=== PATIENT | female | born 1960 | race African-American/Black ===

== ENCOUNTER 2017-05-28 13:12 | Inpatient (IN) | payer OTHER ==
[2017-05-28 15:54] VITALS: BMI 32.5
--- NOTE | 2017-05-28 18:47 | HP ---
CIWA Score - CIWA Score Nausea/Vomitin-No Nausea/No Vomiting Muscle Tremors: 4-Moderate,w/Arms Extend Anxiety: 4-Mod. Anxious/Guarded Agitation: 4-Moderately Restless Paroxysmal Sweats: 3 Orientation: 0-Oriented Tacttile Disturbances: 0-None Auditory Disturbances: 0-None Visual Disturbances: 0-None Headache: 0-None Present CIWA-Ar Total Score: 15 Admission ROS S - HPI Chief Complaint: I am here for detox. Allergies/Adverse Reactions: Allergies Allergy/AdvReac Type Severity Reaction Status Date / Time No Known Allergies Allergy Verified 05/28/17 17:50 History of Present Illness: pt is a 57yr old female with a history of alcohol and cocaine dependence seeking detox for treatment. Exam Limitations: No Limitations - Ebola screening Have you traveled outside of the country in the last 21 days: No (NN) Have you had contact with anyone from an Ebola affected area: No Have you been sick,other than usual withdrawal symptoms: No Do you have a fever: No - Review of Systems Constitutional: Chills, Loss of Appetite, Night Sweats EENT: reports: No Symptoms Reported Respiratory: reports: Cough Cardiac: reports: No Symptoms Reported GI: reports: Diarrhea, Poor Appetite, Poor Fluid Intake : reports: No Symptoms Reported Musculoskeletal: reports: No Symptoms Reported Integumentary: reports: Flushing, Sweating Neuro: reports: Headache, Tingling, Tremors Endocrine: reports: Excessive Sweating, Flushing, Intolerance to Cold, Intolerance to Heat Hematology: reports: No Symptoms Reported Psychiatric: reports: Judgement Intact, Mood/Affect Appropiate, Orientated x3, Agitated, Anxious Other Systems: Reviewed and Negative Patient History - Patient Medical History Hx Anemia: No Hx Asthma: No Hx Chronic Obstructive Pulmonary Disease (COPD): No Hx Cancer: No Hx Cardiac Disorders: No Hx Congestive Heart Failure: No Hx Hypertension: No Hx Hypercholesterolemia: No Hx Pacemaker: No HX Cerebrovascular Accident: No Hx Seizures: No Hx Dementia: No Hx Diabetes: No Hx Gastrointestinal Disorders: No Hx Liver Disease: No Hx Genitourinary Disorders: No Hx Sexually Transmitted Disorders: No Hx Renal Disease (ESRD): No Hx Thyroid Disease: Yes (hyperthyroidism - TAPAZOLE 10MG d/c since 2016) Hx Human Immunodeficiency Virus (HIV): No (NEGATIVE 1 YR AGO) Hx Hepatitis C: No Hx Depression: No Hx Suicide Attempt: No (denies) Hx Bipolar Disorder: No Hx Schizophrenia: No - Patient Surgical History Past Surgical History: Yes Hx Neurologic Surgery: No Hx Cataract Extraction: Yes (01/2016 RIGHT) Hx Cardiac Surgery: No Hx Lung Surgery: No Hx Breast Surgery: No Hx Breast Biopsy: No Hx Abdominal Surgery: No Hx Appendectomy: No Hx Cholecystectomy: No Hx Genitourinary Surgery: No Hx Section: No Hx Orthopedic Surgery: No Hx Hysterectomy: No Other Surgical History: ectopic Anesthesia Reaction: No - PPD History Previous Implant?: Yes Documented Results: Negative w/o proof Implanted On Prior R Admission?: Yes PPD to be Administered?: Yes - Reproductive History Patient is a Female of Child Bearing Age (11 -55 yrs old): No Last Menstrual Period: 08/13/05 Patient : No - Smoking Cessation Smoking history: Current some day smoker Have you smoked in the past 12 months: No Aproximately how many cigarettes per day: 2 Cigars Per Day: 0 Hx Chewing Tobacco Use: No Initiated information on smoking cessation: Yes 'Breaking Loose' booklet given: 05/28/17 - Substance & Tx. History Hx Alcohol Use: Yes Hx Substance Use: Yes Substance Use Type: Alcohol, Cocaine, Marijuana Hx Substance Use Treatment: Yes (last detox 2014 [facility]) - Substances Abused Alcohol Route: Oral Frequency: Daily Amount used: 4-5 beers/ 1 pint vodka Age of first use: 13 Date of Last Use: 05/28/17 Cocaine Route: Inhalation Frequency: 1-2 times per week Amount used: $20 Age of first use: 15 Date of Last Use: 05/26/17 Marijuana/Hashish Route: Smoking Frequency: Daily Amount used: 1-2 bags Age of first use: 13 Date of Last Use: 05/27/17 Family Disease History - Family Disease History Family Disease History: Other: Father (), Mother () Admission Physical Exam BHS - Vital Signs Vital Signs: Vital Signs - 24 hr 05/28/17 15:50 Temperature 97.9 F Pulse Rate 71 Respiratory 20 Rate Blood Pressure 155/103 - Physical General Appearance: Yes: Appropriately Dressed, Obese, Tremorous, Irritable, Sweating, Anxious HEENTM: Yes: Normal Voice, Nasal Congestion, Rhinorrhea, Other (pt has a h/o hyperthyroidism not taking any medication. her medication was d/c since 2017. pt is being followed by her PMD.) Respiratory: Yes: Lungs Clear, Normal Breath Sounds, No Respiratory Distress Neck: Yes: No masses,lesions,Nodules Breast: Yes: Within Normal Limits Cardiology: Yes: Regular Rhythm, Regular Rate, S1, S2 Abdominal: Yes: Normal Bowel Sounds Genitourinary: Yes: Within Normal Limits Back: Yes: Normal Inspection Musculoskeletal: Yes: full range of Motion Extremities: Yes: Normal Capillary Refill, Normal Inspection, Tremors Neurological: Yes: Fully Oriented, Alert, Normal Response Integumentary: Yes: Normal Color Lymphatic: Yes: Within Normal Limits - Diagnostic (1) Alcohol dependence with uncomplicated withdrawal Current Visit: Yes Status: Chronic (2) Hyperthyroidism Current Visit: No Status: Suspected Comment: PT ON TAPAZOLE X 4 YRS - HAS REFUSED SURGERY. Cleared for Admission [facility] - Detox or Rehab [facility] Level of Care: Medically Managed Detox Regimen/Protocol: Librium [facility] Breath Alcohol Content Breath Alcohol Content: 0.023 Urine Pregancy Test - Result Urine Test Results: Negative- NO Line Present Urine Drug Screen - Results Drug Screen Negative: No Urine Drug Screen Results: THC-Marijuana, LUIS A-Cocaine
[2017-05-28] MEDS ORDERED: MAGNESIUM CITRATE 300 ML BOTTLE PO PRN (18:50)
[2017-05-28] MEDS ORDERED: MENTHOL/PHENOL 1 EACH UD MM PRN (18:50)
[2017-05-28] MEDS ORDERED: chlordiazePOXIDE HCL 25 MG CAPSULE PO PRN (18:50)
[2017-05-28] MEDS ORDERED: MAG HYDROX/AL HYDROX/SIMETH 30 ML UNIT-DOSE CUP PO PRN (18:50)
[2017-05-28] MEDS ORDERED: IBUPROFEN 400 MG TABLET (FP) PO PRN (18:50)
[2017-05-28] MEDS ORDERED: LOPERAMIDE HCL 2 MG CAPSULE PO PRN (18:50)
[2017-05-28] MEDS ORDERED: ACETAMINOPHEN 325 MG TABLET (FP) PO PRN (18:50)
[2017-05-28] MEDS ORDERED: hydrOXYzine PAMOATE 50 MG CAPSULE (FP) PO PRN (18:50)
[2017-05-28] MEDS ORDERED: MAGNESIUM HYDROX 2400MG/30ML ORAL SUSPENSION 30 ML CUP PO PRN (18:50)
[2017-05-28] MEDS ORDERED: P-EPHED 60MG/TRIPROLIDI 2.5MG TABLET PO PRN (18:50)
[2017-05-28] MEDS ORDERED: chlordiazePOXIDE HCL 25 MG CAPSULE PO ONE (20:00)
[2017-05-28] MEDS: guaiFENesin/D-METHORPHAN HB 10 ML UNIT-DOSE CUPS PO PRN (20:01)
[2017-05-28] MEDS ORDERED: MELATONIN 5 MG TABLETS PO PRN (22:00)
[2017-05-28] MEDS: chlordiazePOXIDE HCL 25 MG CAPSULE PO SCH (22:34)
[2017-05-28] MEDS: THIAMINE HCL 100 MG TABLET (FP) PO SCH (22:34)
[2017-05-29 02:24] LABS: URINE APPEARANCE CLOUDY; URINE BILIRUBIN NEGATIVE (<2.0 mg/dL); URINE BLOOD 1+ (NEGATIVE); URINE COLOR DKYELLOW; URINE GLUCOSE (UA) NEGATIVE (NEGATIVE); URINE KETONE NEGATIVE (NEGATIVE); URINE NITRITE POSITIVE (NEGATIVE); URINE PROTEIN NEGATIVE (NEGATIVE); URINE UROBILINOGEN NEGATIVE mg/dL (0.2-1.0)
[2017-05-29 02:29] LABS: URINE LEUK ESTERASE 3+ (NEGATIVE)
[2017-05-29 02:39] LABS: EPI CELLS RARE /HPF (FEW); URINE HYALINE CAST 1 /lpf; URINE MUCUS RARE
[2017-05-29] MEDS: chlordiazePOXIDE HCL 25 MG CAPSULE PO SCH ×4 (05:14→22:10)
--- NOTE | 2017-05-29 09:35 | EKG ---
Test Reason : Blood Pressure : / mmHG Vent. Rate : 081 BPM Atrial Rate : 081 BPM P-R Int : 136 ms QRS Dur : 086 ms QT Int : 426 ms P-R-T Axes : 061 021 062 degrees QTc Int : 494 ms NORMAL SINUS RHYTHM POSSIBLE ANTERIOR INFARCT , AGE UNDETERMINED ABNORMAL ECG NO PREVIOUS ECGS AVAILABLE Confirmed by MONIKA WANG MD ([id number]) on 05/29/2017 9:34:57 AM Referred By: Confirmed By:MONIKA WANG MD
--- NOTE | 2017-05-29 09:42 | PN ---
S CIWA - CIWA Score Nausea/Vomitin Muscle Tremors: 3 Anxiety: 3 Agitation: 2 Paroxysmal Sweats: 1-Minimal Palms Moist Orientation: 0-Oriented Tacttile Disturbances: 1-Very Mild Itch/Numbness Auditory Disturbances: 1-Very Mild Visual Disturbances: 0-None Headache: 2-Mild CIWA-Ar Total Score: 16 BHS Progress Note (SOAP) Subjective: ALERT,IRRITABLE,ANXIOUS,INTERRUPTED SLEEP,TREMOR Objective: 05/29/17 09:38 Vital Signs Temperature 98.1 F 05/29/17 06:00 Pulse Rate 81 05/29/17 06:00 Respiratory Rate 18 05/29/17 06:00 Blood Pressure 125/69 05/29/17 06:00 O2 Sat by Pulse Oximetry (%) EKG NSR 81/MIN,INVERTED T IN V1,V2 NO CHEST PAIN,NO SOB,NO DIZZINESS 05/29/17 09:40 Laboratory Last Values Urine Color Dkyellow 05/29/17 00:05 Urine Appearance Cloudy 05/29/17 00:05 Urine pH 6.0 (5.0-8.0) 05/29/17 00:05 Ur Specific [place] 1.012 (1.001-1.035) 05/29/17 00:05 Urine Protein Negative (NEGATIVE) 05/29/17 00:05 Urine Glucose (UA) Negative (NEGATIVE) 05/29/17 00:05 Urine Ketones Negative (NEGATIVE) 05/29/17 00:05 Urine Blood 1+ (NEGATIVE) H 05/29/17 00:05 Urine Nitrite Positive (NEGATIVE) 05/29/17 00:05 Urine Bilirubin Negative (<2.0 mg/dL) 05/29/17 00:05 Urine Urobilinogen Negative mg/dL (0.2-1.0) 05/29/17 00:05 Ur Leukocyte Esterase 3+ (NEGATIVE) H 05/29/17 00:05 Urine WBC (Auto) 95 /hpf (3-5) 05/29/17 00:05 Urine RBC (Auto) None /hpf (0-3) 05/29/17 00:05 Ur Epithelial Cells Rare /HPF (FEW) 05/29/17 00:05 Hyaline Casts 1 /lpf 05/29/17 00:05 Urine Mucus Rare 05/29/17 00:05 WITHDRAWAL SYMPTOM Assessment: 05/29/17 09:40 WITHDRAWAL SYMPTOM Plan: CONTINUE DETOX,HISTORY OF HYPERTHYROIDISM USED TO TAKE MEDICATION BUT D/C BY HER PMD,HAS BEEN FOLLOWED UP BY HER PMD REGULARLY
[2017-05-29 09:56] LABS: ALBUMIN 2.6 g/dl (3.4-5.0); ANION GAP 6 (8-16); BLOOD UREA NITROGEN 6 mg/dL (7-18); CALCIUM 8.5 mg/dL (8.5-10.1); CHLORIDE 105 mmol/L (98-107); CO2 33 mmol/L (21-32); GLUCOSE,RANDOM 75 mg/dL (74-106); POTASSIUM 3.8 mmol/L (3.5-5.1); SGPT/ALT 31 U/L (12-78); SODIUM 144 mmol/L (136-145)
[2017-05-29 09:59] LABS: ALK PHOS 111 U/L (45-117); BILIRUBIN,TOTAL 0.4 mg/dL (0.2-1.0); CREATININE 0.7 mg/dL (0.55-1.02); SGOT/AST 29 U/L (15-37); TOT PROT 6.2 g/dl (6.4-8.2)
[2017-05-29 10:03] LABS: HEMATOCRIT 43.6 % (32.4-45.2); HEMOGLOBIN 13.9 GM/dL (10.7-15.3); MCH 24.1 pg (25.7-33.7); MEAN CELL VOLUME 75.3 fl (80-96); MEAN PLT VOLUME 9.5 fl (7.5-11.1); PLATELET COUNT 287 K/MM3 (134-434); RBC 5.78 M/mm3 (3.60-5.2); RDW 18.1 % (11.6-15.6); WHITE BLOOD COUNT 6.2 K/mm3 (4.0-10.0)
[2017-05-29] MEDS: PRENATAL VITAMINS W/ FOLIC ACID TABLET (FP) PO SCH (10:27)
[2017-05-29] MEDS: NICOTINE 7 MG/24 HOURS TOPICAL PATCH TD SCH (10:28)
--- NOTE | 2017-05-29 14:55 | PN ---
BHS Progress Note Note: ALERT,WITHDRAWAL SYMPTOM
[2017-05-29] MEDS: THIAMINE HCL 100 MG TABLET (FP) PO SCH (22:10)
[2017-05-30] MEDS: chlordiazePOXIDE HCL 25 MG CAPSULE PO SCH ×3 (05:36→17:19)
[2017-05-30] MEDS: PRENATAL VITAMINS W/ FOLIC ACID TABLET (FP) PO SCH (10:13)
[2017-05-30] MEDS: NICOTINE 7 MG/24 HOURS TOPICAL PATCH TD SCH (10:14)
[2017-05-30] MEDS: guaiFENesin/D-METHORPHAN HB 10 ML UNIT-DOSE CUPS PO PRN ×2 (10:15→22:05)
--- NOTE | 2017-05-30 10:54 | PN ---
S CIWA - CIWA Score Nausea/Vomitin Muscle Tremors: 3 Anxiety: 2 Agitation: 2 Paroxysmal Sweats: 1-Minimal Palms Moist Orientation: 0-Oriented Tacttile Disturbances: 1-Very Mild Itch/Numbness Auditory Disturbances: 1-Very Mild Visual Disturbances: 1-Very Mild Sensitivity Headache: 2-Mild CIWA-Ar Total Score: 16 S Progress Note (SOAP) Subjective: ALERT,IRRITABLE,ANXIOUS,INTERRUPTED SLEEP Objective: 05/30/17 10:50 Vital Signs Temperature 98.2 F 05/30/17 10:36 Pulse Rate 96 H 05/30/17 10:36 Respiratory Rate 18 05/30/17 10:36 Blood Pressure 122/80 05/30/17 10:36 O2 Sat by Pulse Oximetry (%) 05/30/17 11:02 Laboratory Last Values WBC 6.2 K/mm3 (4.0-10.0) 05/29/17 08:00 RBC 5.78 M/mm3 (3.60-5.2) H 05/29/17 08:00 Hgb 13.9 GM/dL (10.7-15.3) 05/29/17 08:00 Hct 43.6 % (32.4-45.2) 05/29/17 08:00 MCV 75.3 fl (80-96) L 05/29/17 08:00 MCH 24.1 pg (25.7-33.7) L 05/29/17 08:00 MCHC 32.0 g/dl (32.0-36.0) 05/29/17 08:00 RDW 18.1 % (11.6-15.6) H 05/29/17 08:00 Plt Count 287 K/MM3 (134-434) 05/29/17 08:00 MPV 9.5 fl (7.5-11.1) 05/29/17 08:00 Sodium 144 mmol/L (136-145) 05/29/17 08:00 Potassium 3.8 mmol/L (3.5-5.1) 05/29/17 08:00 Chloride 105 mmol/L (98-107) 05/29/17 08:00 Carbon Dioxide 33 mmol/L (21-32) H 05/29/17 08:00 Anion Gap 6 (8-16) L 05/29/17 08:00 BUN 6 mg/dL (7-18) L 05/29/17 08:00 Creatinine 0.7 mg/dL (0.55-1.02) 05/29/17 08:00 Creat Clearance w eGFR > 60 (>60) 05/29/17 08:00 Random Glucose 75 mg/dL (74-106) 05/29/17 08:00 Calcium 8.5 mg/dL (8.5-10.1) 05/29/17 08:00 Total Bilirubin 0.4 mg/dL (0.2-1.0) D 05/29/17 08:00 AST 29 U/L (15-37) 05/29/17 08:00 ALT 31 U/L (12-78) 05/29/17 08:00 Alkaline Phosphatase 111 U/L (45-117) 05/29/17 08:00 Total Protein 6.2 g/dl (6.4-8.2) L 05/29/17 08:00 Albumin 2.6 g/dl (3.4-5.0) L 05/29/17 08:00 Urine Color Dkyellow 05/29/17 00:05 Urine Appearance Cloudy 05/29/17 00:05 Urine pH 6.0 (5.0-8.0) 05/29/17 00:05 Ur Specific [place] 1.012 (1.001-1.035) 05/29/17 00:05 Urine Protein Negative (NEGATIVE) 05/29/17 00:05 Urine Glucose (UA) Negative (NEGATIVE) 05/29/17 00:05 Urine Ketones Negative (NEGATIVE) 05/29/17 00:05 Urine Blood 1+ (NEGATIVE) H 05/29/17 00:05 Urine Nitrite Positive (NEGATIVE) 05/29/17 00:05 Urine Bilirubin Negative (<2.0 mg/dL) 05/29/17 00:05 Urine Urobilinogen Negative mg/dL (0.2-1.0) 05/29/17 00:05 Ur Leukocyte Esterase 3+ (NEGATIVE) H 05/29/17 00:05 Urine WBC (Auto) 95 /hpf (3-5) 05/29/17 00:05 Urine RBC (Auto) None /hpf (0-3) 05/29/17 00:05 Ur Epithelial Cells Rare /HPF (FEW) 05/29/17 00:05 Hyaline Casts 1 /lpf 05/29/17 00:05 Urine Mucus Rare 05/29/17 00:05 RPR Titer Nonreactive (NONREACTIVE) 05/29/17 08:00 HIV 1&2 Antibody Screen Negative 05/29/17 08:00 HIV P24 Antigen Negative 05/29/17 08:00 05/30/17 11:11 CHEST RAY 0N 05/29/17 NOTED 05/30/17 11:14 Assessment: 05/30/17 11:14 WITHDRAWAL SYMPTOM Plan: CONTINUE DETOX,REPEAT UA,URINE FOR C/S,BACTRIM DS 1 TAB PO BID,FOR UTI FOR 7 DAYS
[2017-05-30] MEDS: SULFAMETHOXAZOLE/TRIMETHOPRIM 800MG/160MG D.S. TABLET PO SCH ×2 (12:50→22:06)
[2017-05-30 13:10] LABS: URINE APPEARANCE SLCLOUDY; URINE BILIRUBIN NEGATIVE (<2.0 mg/dL); URINE BLOOD NEGATIVE (NEGATIVE); URINE COLOR LTYELLOW; URINE GLUCOSE (UA) NEGATIVE (NEGATIVE); URINE KETONE NEGATIVE (NEGATIVE); URINE NITRITE NEGATIVE (NEGATIVE); URINE PROTEIN NEGATIVE (NEGATIVE); URINE UROBILINOGEN NEGATIVE mg/dL (0.2-1.0)
[2017-05-30 13:15] LABS: URINE LEUK ESTERASE 3+ (NEGATIVE)
[2017-05-30 13:19] LABS: EPI CELLS RARE /HPF (FEW); URINE MUCUS RARE
[2017-05-30] MEDS: chlordiazePOXIDE 5 MG CAPSULE PO SCH (22:06)
[2017-05-30] MEDS: THIAMINE HCL 100 MG TABLET (FP) PO SCH (22:06)
[2017-05-31] MEDS: chlordiazePOXIDE 5 MG CAPSULE PO SCH ×3 (05:11→17:29)
[2017-05-31] MEDS: SULFAMETHOXAZOLE/TRIMETHOPRIM 800MG/160MG D.S. TABLET PO SCH ×2 (10:11→22:04)
[2017-05-31] MEDS: NICOTINE 7 MG/24 HOURS TOPICAL PATCH TD SCH (10:11)
[2017-05-31] MEDS: PRENATAL VITAMINS W/ FOLIC ACID TABLET (FP) PO SCH (10:11)
--- NOTE | 2017-05-31 13:28 | PN ---
BHS Progress Note (SOAP) Subjective: feeling better less sweat no tremor denies gi distress Objective: 05/31/17 13:26 Vital Signs Temperature 98.1 F 05/31/17 12:00 Pulse Rate 87 05/31/17 12:00 Respiratory Rate 18 05/31/17 12:00 Blood Pressure 130/83 05/31/17 12:00 O2 Sat by Pulse Oximetry (%) Laboratory Last Values WBC 6.2 K/mm3 (4.0-10.0) 05/29/17 08:00 RBC 5.78 M/mm3 (3.60-5.2) H 05/29/17 08:00 Hgb 13.9 GM/dL (10.7-15.3) 05/29/17 08:00 Hct 43.6 % (32.4-45.2) 05/29/17 08:00 MCV 75.3 fl (80-96) L 05/29/17 08:00 MCH 24.1 pg (25.7-33.7) L 05/29/17 08:00 MCHC 32.0 g/dl (32.0-36.0) 05/29/17 08:00 RDW 18.1 % (11.6-15.6) H 05/29/17 08:00 Plt Count 287 K/MM3 (134-434) 05/29/17 08:00 MPV 9.5 fl (7.5-11.1) 05/29/17 08:00 Sodium 144 mmol/L (136-145) 05/29/17 08:00 Potassium 3.8 mmol/L (3.5-5.1) 05/29/17 08:00 Chloride 105 mmol/L (98-107) 05/29/17 08:00 Carbon Dioxide 33 mmol/L (21-32) H 05/29/17 08:00 Anion Gap 6 (8-16) L 05/29/17 08:00 BUN 6 mg/dL (7-18) L 05/29/17 08:00 Creatinine 0.7 mg/dL (0.55-1.02) 05/29/17 08:00 Creat Clearance w eGFR > 60 (>60) 05/29/17 08:00 Random Glucose 75 mg/dL (74-106) 05/29/17 08:00 Calcium 8.5 mg/dL (8.5-10.1) 05/29/17 08:00 Total Bilirubin 0.4 mg/dL (0.2-1.0) D 05/29/17 08:00 AST 29 U/L (15-37) 05/29/17 08:00 ALT 31 U/L (12-78) 05/29/17 08:00 Alkaline Phosphatase 111 U/L (45-117) 05/29/17 08:00 Total Protein 6.2 g/dl (6.4-8.2) L 05/29/17 08:00 Albumin 2.6 g/dl (3.4-5.0) L 05/29/17 08:00 Urine Color Ltyellow 05/30/17 10:00 Urine Appearance Slcloudy 05/30/17 10:00 Urine pH 6.0 (5.0-8.0) 05/30/17 10:00 Ur Specific [place] 1.008 (1.001-1.035) 05/30/17 10:00 Urine Protein Negative (NEGATIVE) 05/30/17 10:00 Urine Glucose (UA) Negative (NEGATIVE) 05/30/17 10:00 Urine Ketones Negative (NEGATIVE) 05/30/17 10:00 Urine Blood Negative (NEGATIVE) 05/30/17 10:00 Urine Nitrite Negative (NEGATIVE) 05/30/17 10:00 Urine Bilirubin Negative (<2.0 mg/dL) 05/30/17 10:00 Urine Urobilinogen Negative mg/dL (0.2-1.0) 05/30/17 10:00 Ur Leukocyte Esterase 3+ (NEGATIVE) H 05/30/17 10:00 Urine WBC (Auto) 67 /hpf (3-5) 05/30/17 10:00 Urine RBC (Auto) None /hpf (0-3) 05/30/17 10:00 Ur Epithelial Cells Rare /HPF (FEW) 05/30/17 10:00 Hyaline Casts 1 /lpf 05/29/17 00:05 Urine Mucus Rare 05/30/17 10:00 RPR Titer Nonreactive (NONREACTIVE) 05/29/17 08:00 HIV 1&2 Antibody Screen Negative 05/29/17 08:00 HIV P24 Antigen Negative 05/29/17 08:00 lab noted 05/31/17 13:27 continue bactrim Assessment: 04/15/18 13:27 mild withdrawal sx uti Plan: medically supervised detox continue bactrim
[2017-05-31] MEDS: THIAMINE HCL 100 MG TABLET (FP) PO SCH (22:04)
[2017-05-31] MEDS: chlordiazePOXIDE HCL 10 MG CAPSULE PO SCH (22:04)
[2017-06-01] MEDS: chlordiazePOXIDE HCL 10 MG CAPSULE PO SCH ×2 (05:37→10:07)
--- NOTE | 2017-06-01 08:14 | PN ---
S Progress Note (SOAP) Subjective: ALERT,NO COMPLAINT Objective: 06/01/17 08:13 Vital Signs Temperature 98.5 F 06/01/17 06:17 Pulse Rate 87 06/01/17 06:17 Respiratory Rate 18 06/01/17 06:17 Blood Pressure 100/65 06/01/17 06:17 O2 Sat by Pulse Oximetry (%) Assessment: 06/01/17 08:13 DETOX COMPLETED,NO WITHDRAWAL SYMPTOM Plan: DISCHARGE TODAY,FOLLOW UP WITH AFTER CARE PROGRAM ARRANGEMENT
--- NOTE | 2017-06-01 08:19 | DS ---
[facility] Detox Discharge Summary Admission Date: 05/28/17 Discharge Date: 06/01/17 - History Present History: Alcohol Dependence Additional Comments: FOLLOW UP WITH AFTER CARE PROGRAM ARRANGEMENT,URINE FOR C/C PENDING,ON BACTRIM DS 1 TAB PO BID FOR UTI Pertinent Past History: HYPERTHYROIDISM - Physical Exam Results Vital Signs: Vital Signs Temperature 98.5 F 06/01/17 06:17 Pulse Rate 87 06/01/17 06:17 Respiratory Rate 18 06/01/17 06:17 Blood Pressure 100/65 06/01/17 06:17 O2 Sat by Pulse Oximetry (%) Pertinent Admission Physical Exam Findings: WITHDRAWAL SIGNS AND SYMPTOM Vital Signs Temperature 98.5 F 06/01/17 06:17 Pulse Rate 87 06/01/17 06:17 Respiratory Rate 18 06/01/17 06:17 Blood Pressure 100/65 06/01/17 06:17 O2 Sat by Pulse Oximetry (%) Laboratory Last Values WBC 6.2 K/mm3 (4.0-10.0) 05/29/17 08:00 RBC 5.78 M/mm3 (3.60-5.2) H 05/29/17 08:00 Hgb 13.9 GM/dL (10.7-15.3) 05/29/17 08:00 Hct 43.6 % (32.4-45.2) 05/29/17 08:00 MCV 75.3 fl (80-96) L 05/29/17 08:00 MCH 24.1 pg (25.7-33.7) L 05/29/17 08:00 MCHC 32.0 g/dl (32.0-36.0) 05/29/17 08:00 RDW 18.1 % (11.6-15.6) H 05/29/17 08:00 Plt Count 287 K/MM3 (134-434) 05/29/17 08:00 MPV 9.5 fl (7.5-11.1) 05/29/17 08:00 Sodium 144 mmol/L (136-145) 05/29/17 08:00 Potassium 3.8 mmol/L (3.5-5.1) 05/29/17 08:00 Chloride 105 mmol/L (98-107) 05/29/17 08:00 Carbon Dioxide 33 mmol/L (21-32) H 05/29/17 08:00 Anion Gap 6 (8-16) L 05/29/17 08:00 BUN 6 mg/dL (7-18) L 05/29/17 08:00 Creatinine 0.7 mg/dL (0.55-1.02) 05/29/17 08:00 Creat Clearance w eGFR > 60 (>60) 05/29/17 08:00 Random Glucose 75 mg/dL (74-106) 05/29/17 08:00 Calcium 8.5 mg/dL (8.5-10.1) 05/29/17 08:00 Total Bilirubin 0.4 mg/dL (0.2-1.0) D 05/29/17 08:00 AST 29 U/L (15-37) 05/29/17 08:00 ALT 31 U/L (12-78) 05/29/17 08:00 Alkaline Phosphatase 111 U/L (45-117) 05/29/17 08:00 Total Protein 6.2 g/dl (6.4-8.2) L 05/29/17 08:00 Albumin 2.6 g/dl (3.4-5.0) L 05/29/17 08:00 Urine Color Ltyellow 05/30/17 10:00 Urine Appearance Slcloudy 05/30/17 10:00 Urine pH 6.0 (5.0-8.0) 05/30/17 10:00 Ur Specific [place] 1.008 (1.001-1.035) 05/30/17 10:00 Urine Protein Negative (NEGATIVE) 05/30/17 10:00 Urine Glucose (UA) Negative (NEGATIVE) 05/30/17 10:00 Urine Ketones Negative (NEGATIVE) 05/30/17 10:00 Urine Blood Negative (NEGATIVE) 05/30/17 10:00 Urine Nitrite Negative (NEGATIVE) 05/30/17 10:00 Urine Bilirubin Negative (<2.0 mg/dL) 05/30/17 10:00 Urine Urobilinogen Negative mg/dL (0.2-1.0) 05/30/17 10:00 Ur Leukocyte Esterase 3+ (NEGATIVE) H 05/30/17 10:00 Urine WBC (Auto) 67 /hpf (3-5) 05/30/17 10:00 Urine RBC (Auto) None /hpf (0-3) 05/30/17 10:00 Ur Epithelial Cells Rare /HPF (FEW) 05/30/17 10:00 Hyaline Casts 1 /lpf 05/29/17 00:05 Urine Mucus Rare 05/30/17 10:00 RPR Titer Nonreactive (NONREACTIVE) 05/29/17 08:00 HIV 1&2 Antibody Screen Negative 05/29/17 08:00 HIV P24 Antigen Negative 05/29/17 08:00 - Treatment Hospital Course: Detox Protocol Followed, Detoxed Safely, Responded well, Discharged Condition Good, Rehab Referral Accepted Patient has Accepted a Rehab Referral to: [facility] - Medication Discharge Medications: Ambulatory Orders NK [No Known Home Medication] 05/28/17 - Diagnosis (1) Alcohol dependence with uncomplicated withdrawal Current Visit: Yes Status: Chronic (2) Nicotine abuse Current Visit: No Status: Chronic (3) Hyperthyroidism Current Visit: No Status: Suspected (4) Nicotine dependence Current Visit: Yes Status: Acute (5) Nicotine dependence Current Visit: Yes Status: Acute (6) UTI (urinary tract infection) Current Visit: Yes Status: Acute - AMA Did Patient Leave Against Medical Advice: No
[2017-06-01] MEDS: SULFAMETHOXAZOLE/TRIMETHOPRIM 800MG/160MG D.S. TABLET PO SCH (10:06)
[2017-06-01] MEDS: PRENATAL VITAMINS W/ FOLIC ACID TABLET (FP) PO SCH (10:07)
[2017-06-01] MEDS: NICOTINE 7 MG/24 HOURS TOPICAL PATCH TD SCH (10:07)
[2017-06-01 14:09] VITALS: BP 146/82; PULSE 95; TEMP 97.7
== END 2017-06-01 14:17 | disposition home or self-care (01) | DRG 774 ==
LOC: YASAS 13:12 → Y6N 19:12
PROVIDERS: ADMIT Internal Medicine; ATTEND Internal Medicine
PROC: HZ2ZZZZ Detoxification Services for Substance Abuse Treatment (ICD-10-PCS; principal; 2017-05-28)
DX: F10.230 Alcohol dependence with withdrawal, uncomplicated (principal); F14.20 Cocaine dependence, uncomplicated; F17.210 Nicotine dependence, cigarettes, uncomplicated; E05.90 Thyrotoxicosis, unspecified without thyrotoxic crisis or storm; N39.0 Urinary tract infection, site not specified; Z59.0 Homelessness
CPT/HCPCS: 36415; 71045-TC-FY; 80053; 81003; 81015; 85027; 86593; 87086; 87389; 93005; 93010

== ENCOUNTER 2017-07-29 15:51 | Inpatient (IN) | payer OTHER ==
[2017-07-29 17:22] VITALS: BMI 32.9
--- NOTE | 2017-07-29 20:53 | HP ---
CIWA Score - CIWA Score Nausea/Vomitin Muscle Tremors: 2 Anxiety: 2 Agitation: 1-Slight > Activity Paroxysmal Sweats: 2 Orientation: 1-Uncertain about Date Tacttile Disturbances: 1-Very Mild Itch/Numbness Auditory Disturbances: 0-None Visual Disturbances: 1-Very Mild Sensitivity Headache: 0-None Present CIWA-Ar Total Score: 13 Admission ROS BHS - HPI Chief Complaint: alcohol withdrawal symptoms Allergies/Adverse Reactions: Allergies Allergy/AdvReac Type Severity Reaction Status Date / Time No Known Allergies Allergy Verified 07/29/17 19:38 History of Present Illness: 57 yo female with hx of chronic alcohol and nicotine dependence is here seeking detox, this is one of multiple admissions. PMHX: thyroid d/o, liver disease ( unspecified), bipolar and depression. Denies suicidal / homicidal ideation or hx of suicide attempt. Last detox [facility] 05/28/17 - 05/26/17. Longest period of sobriety 5 years. Exam Limitations: No Limitations - Ebola screening Have you traveled outside of the country in the last 21 days: No (N) Have you had contact with anyone from an Ebola affected area: No Have you been sick,other than usual withdrawal symptoms: No Do you have a fever: No - Review of Systems Constitutional: Chills, Loss of Appetite, Changes in sleep, Unintentional Wgt. Loss EENT: reports: Dental Problems Respiratory: reports: SOB with Exertion (missing teeth) Cardiac: reports: No Symptoms Reported GI: reports: Diarrhea, Nausea, Poor Appetite, Poor Fluid Intake, Vomiting : reports: Other (ocassional incontinence) Musculoskeletal: reports: No Symptoms Reported Integumentary: reports: No Symptoms Reported Endocrine: reports: Increased Thirst Hematology: reports: No Symptoms Reported Psychiatric: reports: Orientated x3, Depressed Other Systems: Reviewed and Negative Patient History - Patient Medical History Hx Anemia: No Hx Asthma: No Hx Chronic Obstructive Pulmonary Disease (COPD): No Hx Cancer: No Hx Cardiac Disorders: No Hx Congestive Heart Failure: No Hx Hypertension: No Hx Hypercholesterolemia: No Hx Pacemaker: No HX Cerebrovascular Accident: No Hx Seizures: No Hx Dementia: No Hx Diabetes: No Hx Gastrointestinal Disorders: No Hx Liver Disease: No Hx Genitourinary Disorders: No Hx Sexually Transmitted Disorders: No Hx Renal Disease (ESRD): No Hx Thyroid Disease: Yes (hyperthyroidism - TAPAZOLE 10MG d/c since 2016) Hx Human Immunodeficiency Virus (HIV): No (NEGATIVE 1 YR AGO) Hx Hepatitis C: No Hx Depression: Yes Hx Suicide Attempt: No Hx Bipolar Disorder: No Hx Schizophrenia: No - Patient Surgical History Past Surgical History: Yes Hx Neurologic Surgery: No Hx Cataract Extraction: Yes (01/2016 RIGHT) Hx Cardiac Surgery: No Hx Lung Surgery: No Hx Breast Surgery: No Hx Breast Biopsy: No Hx Abdominal Surgery: No Hx Appendectomy: No Hx Cholecystectomy: No Hx Genitourinary Surgery: No Hx Section: No Hx Orthopedic Surgery: No Hx Hysterectomy: No Other Surgical History: ectopic Anesthesia Reaction: No - PPD History Previous Implant?: Yes Documented Results: Positive w/proof Date: 07/22/14 - Reproductive History Last Menstrual Period: 08/13/05 - Smoking Cessation Smoking history: Current some day smoker Have you smoked in the past 12 months: No Aproximately how many cigarettes per day: 5 Cigars Per Day: 0 Hx Chewing Tobacco Use: No Initiated information on smoking cessation: Yes 'Breaking Loose' booklet given: 07/29/17 - Substances Abused Alcohol Route: Inhalation Frequency: Daily Amount used: 4 40 OZ BEER 3 CLAU Age of first use: 13 Date of Last Use: 07/29/17 Family Disease History - Family Disease History Family Disease History: Other: Father (), Mother () Admission Physical Exam S - Vital Signs Vital Signs: Vital Signs - 24 hr 07/29/17 17:17 Temperature 98.1 F Pulse Rate 111 H Respiratory 18 Rate Blood Pressure 96/77 - Physical General Appearance: Yes: Mild Distress, Alcohol on Breath, Anxious, Other ( tearful) HEENTM: Yes: EOMI, Hearing grossly Normal, Normal ENT Inspection, Pharynx Normal , Tm's normal, Other (poor dentation) Respiratory: Yes: Chest Non-Tender, Lungs Clear, Normal Breath Sounds, No Respiratory Distress, No Accessory Muscle Use Neck: Yes: Within Normal Limits Breast: Yes: Breast Exam Deferred Cardiology: Yes: Regular Rhythm, Regular Rate Abdominal: Yes: Normal Bowel Sounds, Non Tender, Soft, Protuberent Genitourinary: Yes: Within Normal Limits Back: Yes: Normal Inspection Musculoskeletal: Yes: full range of Motion, Gait Steady, Pelvis Stable Extremities: Yes: Normal Capillary Refill, Normal Inspection, Normal Range of Motion Neurological: Yes: breakfast server II-XII NML intact, Fully Oriented, Motor Strength 5/5, Depressed Affect, Other (tearful during assessment) Integumentary: Yes: Normal Color, Warm, Diaphoresis Lymphatic: Yes: Within Normal Limits - Diagnostic (1) Nicotine dependence Current Visit: Yes Status: Acute Qualifiers: Nicotine product type: cigarettes Substance use status: in withdrawal Qualified Code(s): F17.213 - Nicotine dependence, cigarettes, with withdrawal (2) Alcohol dependence with uncomplicated withdrawal Current Visit: Yes Status: Chronic (3) Hyperthyroidism Current Visit: Yes Status: Suspected Comment: PT ON TAPAZOLE X 4 YRS - HAS REFUSED SURGERY. (4) Depressed mood Current Visit: Yes Status: Acute Cleared for Admission [facility] - Detox or Rehab [facility] Level of Care: Medically Managed Detox Regimen/Protocol: Librium S Breath Alcohol Content Breath Alcohol Content: 0.189 Urine Pregancy Test - Result Urine Test Results: Negative- NO Line Present Urine Drug Screen - Results Drug Screen Negative: Yes
[2017-07-29] MEDS ORDERED: MENTHOL/PHENOL 1 EACH UD MM PRN (21:04)
[2017-07-29] MEDS ORDERED: ACETAMINOPHEN 325 MG TABLET (FP) PO PRN (21:04)
[2017-07-29] MEDS ORDERED: MAG HYDROX/AL HYDROX/SIMETH 30 ML UNIT-DOSE CUP PO PRN (21:04)
[2017-07-29] MEDS ORDERED: chlordiazePOXIDE HCL 25 MG CAPSULE PO PRN (21:04)
[2017-07-29] MEDS ORDERED: IBUPROFEN 400 MG TABLET (FP) PO PRN (21:04)
[2017-07-29] MEDS ORDERED: chlordiazePOXIDE HCL 25 MG CAPSULE PO ONE (21:04)
[2017-07-29] MEDS ORDERED: hydrOXYzine PAMOATE 50 MG CAPSULE (FP) PO PRN (21:04)
[2017-07-29] MEDS ORDERED: NICOTINE POLACRILEX 2 MG GUM BC PRN (21:04)
[2017-07-29] MEDS ORDERED: LOPERAMIDE HCL 2 MG CAPSULE PO PRN (21:04)
[2017-07-29] MEDS ORDERED: MAGNESIUM HYDROX 2400MG/30ML ORAL SUSPENSION 30 ML CUP PO PRN (21:04)
[2017-07-29] MEDS ORDERED: guaiFENesin/D-METHORPHAN HB 10 ML UNIT-DOSE CUPS PO PRN (21:04)
[2017-07-29] MEDS ORDERED: MAGNESIUM CITRATE 300 ML BOTTLE PO PRN (21:04)
[2017-07-29] MEDS ORDERED: P-EPHED 60MG/TRIPROLIDI 2.5MG TABLET PO PRN (21:04)
[2017-07-29] MEDS ORDERED: MELATONIN 5 MG TABLETS PO PRN (22:00)
[2017-07-29] MEDS: THIAMINE HCL 100 MG TABLET (FP) PO SCH (22:54)
[2017-07-29] MEDS: chlordiazePOXIDE HCL 25 MG CAPSULE PO SCH (22:55)
[2017-07-30 00:08] LABS: URINE APPEARANCE CLEAR; URINE BILIRUBIN NEGATIVE (<2.0 mg/dL); URINE COLOR COLORLESS; URINE GLUCOSE (UA) NEGATIVE (NEGATIVE); URINE KETONE NEGATIVE (NEGATIVE); URINE LEUK ESTERASE NEGATIVE (NEGATIVE); URINE NITRITE NEGATIVE (NEGATIVE); URINE PROTEIN NEGATIVE (NEGATIVE); URINE UROBILINOGEN NEGATIVE mg/dL (0.2-1.0)
[2017-07-30] MEDS: chlordiazePOXIDE HCL 25 MG CAPSULE PO SCH ×4 (06:14→22:20)
[2017-07-30 10:25] LABS: HEMATOCRIT 39.2 % (32.4-45.2); HEMOGLOBIN 12.7 GM/dL (10.7-15.3); MCH 24.2 pg (25.7-33.7); MCHC 32.4 g/dl (32.0-36.0); MEAN CELL VOLUME 74.6 fl (80-96); MEAN PLT VOLUME 9.4 fl (7.5-11.1); PLATELET COUNT 194 K/MM3 (134-434); RBC 5.25 M/mm3 (3.60-5.2); RDW 17.4 % (11.6-15.6); WHITE BLOOD COUNT 8.9 K/mm3 (4.0-10.0)
[2017-07-30 10:43] LABS: ANION GAP 7 (8-16); BLOOD UREA NITROGEN 9 mg/dL (7-18); CALCIUM 8.5 mg/dL (8.5-10.1); CHLORIDE 105 mmol/L (98-107); CO2 30 mmol/L (21-32); CREATININE 0.7 mg/dL (0.55-1.02); GLUCOSE,RANDOM 88 mg/dL (74-106); POTASSIUM 4.4 mmol/L (3.5-5.1); SGOT/AST 50 U/L (15-37); SGPT/ALT 72 U/L (12-78); SODIUM 142 mmol/L (136-145)
[2017-07-30 10:45] LABS: ALK PHOS 97 U/L (45-117); BILIRUBIN,TOTAL 0.5 mg/dL (0.2-1.0); TOT PROT 6.8 g/dl (6.4-8.2)
[2017-07-30] MEDS: PRENATAL VITAMINS W/ FOLIC ACID TABLET (FP) PO SCH (10:54)
[2017-07-30] MEDS: NICOTINE 14 MG/24 HOURS TOPICAL PATCH TD SCH (10:56)
--- NOTE | 2017-07-30 11:16 | EKG ---
Test Reason : Blood Pressure : / mmHG Vent. Rate : 099 BPM Atrial Rate : 099 BPM P-R Int : 150 ms QRS Dur : 086 ms QT Int : 382 ms P-R-T Axes : -02 023 -08 degrees QTc Int : 490 ms NORMAL SINUS RHYTHM CANNOT RULE OUT ANTERIOR INFARCT (CITED ON OR BEFORE 28-MAY-2017) ABNORMAL ECG WHEN COMPARED WITH ECG OF 28-MAY-2017 20:19, T WAVE INVERSION NOW EVIDENT IN INFERIOR LEADS Confirmed by HARPREET PALOMARES MD ([id number]) on 07/30/2017 11:15:56 AM Referred By: Confirmed By:HARPREET PALOMARES MD
--- NOTE | 2017-07-30 11:18 | CONSULT ---
[facility] Psychiatric Consult - Data Date of interview: 07/30/17 Admission source: [facility] Identifying data: This is 57 years old female, single mother of one, homeless, unemployed, on PA, with psychiatric hospitalization history, with history of chronic alcoholism, and nicotine dependence is here seeking detox, patient reports Alcohol withdrawal symptoms. Substance Abuse History: - Smoking Cessation. Smoking history: Current some day smoker. Have you smoked in the past 12 months: No. Aproximately how many cigarettes per day: 5. Cigars Per Day: 0. Hx Chewing Tobacco Use: No. Initiated information on smoking cessation: Yes. 'Breaking Loose' booklet given : 07/29/17. - Substances Abused. Alcohol. Route: Inhalation. Frequency: Daily. Amount used: 4 40 OZ BEER 3 CLAU. Age of first use: 13. Date of Last Use: 07/29/17 Medical History: Hyperthyroidism, R. eye Cataract, Psychiatric History: Patient reports unsclear psychiatric hospitalization history, reports history of depression, denies suicidal, homicidal history, reports no medications taking prior to admission. Physical/Sexual Abuse/Trauma History: Denies, unclear Additional Comment: Observation. Detox Unit Care Protocol Mental Status Exam - Mental Status Exam Alert and Oriented to: Person Cognitive Function: Fair Patient Appearance: Unkempt Mood: Sad Affect: Flat Patient Behavior: Sedated Speech Pattern: Delayed Voice Loudness: Mildly Soft/Quiet Thought Process: Circumstantial Thought Disorder: Being Controlled Hallucinations: Denies Suicidal Ideation: Denies Homicidal Ideation: Denies Insight/Judgement: Fair Sleep: Difficulty falling asleep Appetite: Weight gain Muscle strength/Tone: Mild Hypotonicity Gait/Station: Shuffling Additional Comments: Observation. Detox Unit Care Protocol Psychiatric Findings - Problem List ([place] 1, 2,3) (1) Drug-induced mood disorder Current Visit: Yes Status: Acute (2) Nicotine dependence Current Visit: Yes Status: Acute Qualifiers: Nicotine product type: cigarettes Substance use status: in withdrawal Qualified Code(s): F17.213 - Nicotine dependence, cigarettes, with withdrawal (3) Alcohol dependence with uncomplicated withdrawal Current Visit: Yes Status: Chronic (4) Hyperthyroidism Current Visit: Yes Status: Suspected Comment: PT ON TAPAZOLE X 4 YRS - HAS REFUSED SURGERY. (5) Nicotine dependence Current Visit: No Status: Acute (6) UTI (urinary tract infection) Current Visit: No Status: Acute (7) After cataract, right eye Current Visit: No Status: Chronic Comment: REMOVED 01/28/16 (8) Cannabis abuse Current Visit: No Status: Chronic (9) Chronic alcoholism Current Visit: No Status: Chronic (10) Cocaine abuse Current Visit: No Status: Chronic - Initial Treatment Plan Initial Treatment Plan: Observation. Detox Unit Care Protocol
--- NOTE | 2017-07-30 12:44 | PN ---
S CIWA - CIWA Score Nausea/Vomitin-Mild Nausea/No Vomiting Muscle Tremors: 4-Moderate,w/Arms Extend Anxiety: 3 Agitation: 3 Paroxysmal Sweats: 1-Minimal Palms Moist Orientation: 0-Oriented Tacttile Disturbances: 0-None Auditory Disturbances: 0-None Visual Disturbances: 0-None Headache: 0-None Present CIWA-Ar Total Score: 12 BHS Progress Note (SOAP) Subjective: sweat tremor anxiety restlessness irritable trouble sleep at night Objective: 07/30/17 12:49 Vital Signs Temperature 98.1 F 07/30/17 09:19 Pulse Rate 103 H 07/30/17 09:19 Respiratory Rate 18 07/30/17 09:19 Blood Pressure 110/50 07/30/17 09:19 O2 Sat by Pulse Oximetry (%) Laboratory Last Values WBC 8.9 K/mm3 (4.0-10.0) D 07/30/17 08:50 RBC 5.25 M/mm3 (3.60-5.2) H 07/30/17 08:50 Hgb 12.7 GM/dL (10.7-15.3) 07/30/17 08:50 Hct 39.2 % (32.4-45.2) 07/30/17 08:50 MCV 74.6 fl (80-96) L 07/30/17 08:50 MCH 24.2 pg (25.7-33.7) L 07/30/17 08:50 MCHC 32.4 g/dl (32.0-36.0) 07/30/17 08:50 RDW 17.4 % (11.6-15.6) H 07/30/17 08:50 Plt Count 194 K/MM3 (134-434) D 07/30/17 08:50 MPV 9.4 fl (7.5-11.1) 07/30/17 08:50 Sodium 142 mmol/L (136-145) 07/30/17 08:50 Potassium 4.4 mmol/L (3.5-5.1) 07/30/17 08:50 Chloride 105 mmol/L (98-107) 07/30/17 08:50 Carbon Dioxide 30 mmol/L (21-32) 07/30/17 08:50 Anion Gap 7 (8-16) L 07/30/17 08:50 BUN 9 mg/dL (7-18) 07/30/17 08:50 Creatinine 0.7 mg/dL (0.55-1.02) 07/30/17 08:50 Creat Clearance w eGFR > 60 (>60) 07/30/17 08:50 Random Glucose 88 mg/dL (74-106) 07/30/17 08:50 Calcium 8.5 mg/dL (8.5-10.1) 07/30/17 08:50 Total Bilirubin 0.5 mg/dL (0.2-1.0) D 07/30/17 08:50 AST 50 U/L (15-37) H 07/30/17 08:50 ALT 72 U/L (12-78) 07/30/17 08:50 Alkaline Phosphatase 97 U/L (45-117) 07/30/17 08:50 Total Protein 6.8 g/dl (6.4-8.2) 07/30/17 08:50 Albumin 3.0 g/dl (3.4-5.0) L 07/30/17 08:50 Urine Color Colorless 07/29/17 23:50 Urine Appearance Clear 07/29/17 23:50 Urine pH 6.0 (5.0-8.0) 07/29/17 23:50 Ur Specific [place] 1.002 (1.001-1.035) 07/29/17 23:50 Urine Protein Negative (NEGATIVE) 07/29/17 23:50 Urine Glucose (UA) Negative (NEGATIVE) 07/29/17 23:50 Urine Ketones Negative (NEGATIVE) 07/29/17 23:50 Urine Blood Negative (NEGATIVE) 07/29/17 23:50 Urine Nitrite Negative (NEGATIVE) 07/29/17 23:50 Urine Bilirubin Negative (<2.0 mg/dL) 07/29/17 23:50 Urine Urobilinogen Negative mg/dL (0.2-1.0) 07/29/17 23:50 Ur Leukocyte Esterase Negative (NEGATIVE) 07/29/17 23:50 lab noted 07/30/17 12:52 Assessment: 07/30/17 12:53 withdrawal sx Plan: continue detox
[2017-07-30] MEDS: THIAMINE HCL 100 MG TABLET (FP) PO SCH (22:20)
[2017-07-31] MEDS: chlordiazePOXIDE HCL 25 MG CAPSULE PO SCH ×3 (06:07→17:23)
[2017-07-31] MEDS: PRENATAL VITAMINS W/ FOLIC ACID TABLET (FP) PO SCH (10:21)
[2017-07-31] MEDS: NICOTINE 14 MG/24 HOURS TOPICAL PATCH TD SCH (10:22)
--- NOTE | 2017-07-31 13:27 | PN ---
S CIWA - CIWA Score Nausea/Vomitin-No Nausea/No Vomiting Muscle Tremors: 4-Moderate,w/Arms Extend Anxiety: 4-Mod. Anxious/Guarded Agitation: 4-Moderately Restless Paroxysmal Sweats: 1-Minimal Palms Moist Orientation: 0-Oriented Tacttile Disturbances: 0-None Auditory Disturbances: 0-None Visual Disturbances: 0-None Headache: 0-None Present CIWA-Ar Total Score: 13 BHS Progress Note (SOAP) Subjective: ANXIETY,SWEATS,INTERMITTENT SLEEP. Objective: 07/31/17 13:26 Vital Signs 07/31/17 07/31/17 07:22 10:07 Temperature 97.9 F 98.1 F Pulse Rate 81 90 Respiratory 18 18 Rate Blood Pressure 128/92 136/85 Laboratory Tests 07/29/17 07/30/17 07/30/17 23:50 08:50 08:50 WBC 8.9 D RBC 5.25 H Hgb 12.7 Hct 39.2 MCV 74.6 L MCH 24.2 L MCHC 32.4 RDW 17.4 H Plt Count 194 D MPV 9.4 Sodium 142 Potassium 4.4 Chloride 105 Carbon Dioxide 30 Anion Gap 7 L BUN 9 Creatinine 0.7 Creat Clearance w eGFR > 60 Random Glucose 88 Calcium 8.5 Total Bilirubin 0.5 D AST 50 H ALT 72 Alkaline Phosphatase 97 Total Protein 6.8 Albumin 3.0 L Urine Color Colorless Urine Appearance Clear Urine pH 6.0 Ur Specific [place] 1.002 Urine Protein Negative Urine Glucose (UA) Negative Urine Ketones Negative Urine Blood Negative Urine Nitrite Negative Urine Bilirubin Negative Urine Urobilinogen Negative Ur Leukocyte Esterase Negative RPR Titer HIV 1&2 Antibody Screen HIV P24 Antigen 07/30/17 07/30/17 09:00 10:10 WBC RBC Hgb Hct MCV MCH MCHC RDW Plt Count MPV Sodium Potassium Chloride Carbon Dioxide Anion Gap BUN Creatinine Creat Clearance w eGFR Random Glucose Calcium Total Bilirubin AST ALT Alkaline Phosphatase Total Protein Albumin Urine Color Urine Appearance Urine pH Ur Specific [place] Urine Protein Urine Glucose (UA) Urine Ketones Urine Blood Urine Nitrite Urine Bilirubin Urine Urobilinogen Ur Leukocyte Esterase RPR Titer Nonreactive HIV 1&2 Antibody Screen Negative HIV P24 Antigen Negative Assessment: 07/31/17 13:26 WITHDRAWAL SX Plan: CONTINUE DETOX
[2017-07-31] MEDS: chlordiazePOXIDE 5 MG CAPSULE PO SCH (22:18)
[2017-07-31] MEDS: THIAMINE HCL 100 MG TABLET (FP) PO SCH (22:19)
[2017-08-01] MEDS: chlordiazePOXIDE 5 MG CAPSULE PO SCH ×3 (05:43→17:35)
[2017-08-01] MEDS: NICOTINE 14 MG/24 HOURS TOPICAL PATCH TD SCH (10:37)
[2017-08-01] MEDS: PRENATAL VITAMINS W/ FOLIC ACID TABLET (FP) PO SCH (10:37)
--- NOTE | 2017-08-01 21:18 | PN ---
BHS Progress Note (SOAP) Subjective: sweats Shakes Sleep disturbance Objective: 08/01/17 21:17 A & O x 3 in no acute distress Assessment: 08/01/17 21:17 withdrawal sx Plan: continue detox
[2017-08-01] MEDS: chlordiazePOXIDE HCL 10 MG CAPSULE PO SCH (22:29)
[2017-08-01] MEDS: THIAMINE HCL 100 MG TABLET (FP) PO SCH (22:29)
[2017-08-02] MEDS: chlordiazePOXIDE HCL 10 MG CAPSULE PO SCH ×2 (05:42→10:12)
--- NOTE | 2017-08-02 09:49 | DS ---
[facility] Detox Discharge Summary Admission Date: 07/29/17 Discharge Date: 08/02/17 - History Present History: Alcohol Dependence Additional Comments: 57 YEARS OLD FEMALE ADMITTED 07/29/17 FOR ALCOHOL WITHDRAWAL SX COMPLETED ALCOHOL DETOX REGIMEN TOLERATED WELL DENIES ALCOHOL WITHDRAWAL SX ALERT ORIENTED X 3 NO ACUTE DISTRESS [facility] - Physical Exam Results Vital Signs: Vital Signs Temperature 97.7 F 08/02/17 06:29 Pulse Rate 83 08/02/17 06:29 Respiratory Rate 18 08/02/17 06:29 Blood Pressure 104/63 08/02/17 06:29 O2 Sat by Pulse Oximetry (%) Laboratory Last Values WBC 8.9 K/mm3 (4.0-10.0) D 07/30/17 08:50 RBC 5.25 M/mm3 (3.60-5.2) H 07/30/17 08:50 Hgb 12.7 GM/dL (10.7-15.3) 07/30/17 08:50 Hct 39.2 % (32.4-45.2) 07/30/17 08:50 MCV 74.6 fl (80-96) L 07/30/17 08:50 MCH 24.2 pg (25.7-33.7) L 07/30/17 08:50 MCHC 32.4 g/dl (32.0-36.0) 07/30/17 08:50 RDW 17.4 % (11.6-15.6) H 07/30/17 08:50 Plt Count 194 K/MM3 (134-434) D 07/30/17 08:50 MPV 9.4 fl (7.5-11.1) 07/30/17 08:50 Sodium 142 mmol/L (136-145) 07/30/17 08:50 Potassium 4.4 mmol/L (3.5-5.1) 07/30/17 08:50 Chloride 105 mmol/L (98-107) 07/30/17 08:50 Carbon Dioxide 30 mmol/L (21-32) 07/30/17 08:50 Anion Gap 7 (8-16) L 07/30/17 08:50 BUN 9 mg/dL (7-18) 07/30/17 08:50 Creatinine 0.7 mg/dL (0.55-1.02) 07/30/17 08:50 Creat Clearance w eGFR > 60 (>60) 07/30/17 08:50 Random Glucose 88 mg/dL (74-106) 07/30/17 08:50 Calcium 8.5 mg/dL (8.5-10.1) 07/30/17 08:50 Total Bilirubin 0.5 mg/dL (0.2-1.0) D 07/30/17 08:50 AST 50 U/L (15-37) H 07/30/17 08:50 ALT 72 U/L (12-78) 07/30/17 08:50 Alkaline Phosphatase 97 U/L (45-117) 07/30/17 08:50 Total Protein 6.8 g/dl (6.4-8.2) 07/30/17 08:50 Albumin 3.0 g/dl (3.4-5.0) L 07/30/17 08:50 Urine Color Colorless 07/29/17 23:50 Urine Appearance Clear 07/29/17 23:50 Urine pH 6.0 (5.0-8.0) 07/29/17 23:50 Ur Specific [place] 1.002 (1.001-1.035) 07/29/17 23:50 Urine Protein Negative (NEGATIVE) 07/29/17 23:50 Urine Glucose (UA) Negative (NEGATIVE) 07/29/17 23:50 Urine Ketones Negative (NEGATIVE) 07/29/17 23:50 Urine Blood Negative (NEGATIVE) 07/29/17 23:50 Urine Nitrite Negative (NEGATIVE) 07/29/17 23:50 Urine Bilirubin Negative (<2.0 mg/dL) 07/29/17 23:50 Urine Urobilinogen Negative mg/dL (0.2-1.0) 07/29/17 23:50 Ur Leukocyte Esterase Negative (NEGATIVE) 07/29/17 23:50 RPR Titer Nonreactive (NONREACTIVE) 07/30/17 09:00 HIV 1&2 Antibody Screen Negative 07/30/17 10:10 HIV P24 Antigen Negative 07/30/17 10:10 Pertinent Admission Physical Exam Findings: ALCOHOL WITHDRAWAL SX Vital Signs Temperature 97.7 F 08/02/17 06:29 Pulse Rate 83 08/02/17 06:29 Respiratory Rate 18 08/02/17 06:29 Blood Pressure 104/63 08/02/17 06:29 O2 Sat by Pulse Oximetry (%) Laboratory Last Values WBC 8.9 K/mm3 (4.0-10.0) D 07/30/17 08:50 RBC 5.25 M/mm3 (3.60-5.2) H 07/30/17 08:50 Hgb 12.7 GM/dL (10.7-15.3) 07/30/17 08:50 Hct 39.2 % (32.4-45.2) 07/30/17 08:50 MCV 74.6 fl (80-96) L 07/30/17 08:50 MCH 24.2 pg (25.7-33.7) L 07/30/17 08:50 MCHC 32.4 g/dl (32.0-36.0) 07/30/17 08:50 RDW 17.4 % (11.6-15.6) H 07/30/17 08:50 Plt Count 194 K/MM3 (134-434) D 07/30/17 08:50 MPV 9.4 fl (7.5-11.1) 07/30/17 08:50 Sodium 142 mmol/L (136-145) 07/30/17 08:50 Potassium 4.4 mmol/L (3.5-5.1) 07/30/17 08:50 Chloride 105 mmol/L (98-107) 07/30/17 08:50 Carbon Dioxide 30 mmol/L (21-32) 07/30/17 08:50 Anion Gap 7 (8-16) L 07/30/17 08:50 BUN 9 mg/dL (7-18) 07/30/17 08:50 Creatinine 0.7 mg/dL (0.55-1.02) 07/30/17 08:50 Creat Clearance w eGFR > 60 (>60) 07/30/17 08:50 Random Glucose 88 mg/dL (74-106) 07/30/17 08:50 Calcium 8.5 mg/dL (8.5-10.1) 07/30/17 08:50 Total Bilirubin 0.5 mg/dL (0.2-1.0) D 07/30/17 08:50 AST 50 U/L (15-37) H 07/30/17 08:50 ALT 72 U/L (12-78) 07/30/17 08:50 Alkaline Phosphatase 97 U/L (45-117) 07/30/17 08:50 Total Protein 6.8 g/dl (6.4-8.2) 07/30/17 08:50 Albumin 3.0 g/dl (3.4-5.0) L 07/30/17 08:50 Urine Color Colorless 07/29/17 23:50 Urine Appearance Clear 07/29/17 23:50 Urine pH 6.0 (5.0-8.0) 07/29/17 23:50 Ur Specific [place] 1.002 (1.001-1.035) 07/29/17 23:50 Urine Protein Negative (NEGATIVE) 07/29/17 23:50 Urine Glucose (UA) Negative (NEGATIVE) 07/29/17 23:50 Urine Ketones Negative (NEGATIVE) 07/29/17 23:50 Urine Blood Negative (NEGATIVE) 07/29/17 23:50 Urine Nitrite Negative (NEGATIVE) 07/29/17 23:50 Urine Bilirubin Negative (<2.0 mg/dL) 07/29/17 23:50 Urine Urobilinogen Negative mg/dL (0.2-1.0) 07/29/17 23:50 Ur Leukocyte Esterase Negative (NEGATIVE) 07/29/17 23:50 RPR Titer Nonreactive (NONREACTIVE) 07/30/17 09:00 HIV 1&2 Antibody Screen Negative 07/30/17 10:10 HIV P24 Antigen Negative 07/30/17 10:10 LAB NOTED - Treatment Hospital Course: Detox Protocol Followed, Detoxed Safely, Responded well, Discharged Condition Good, Rehab Referral Accepted Patient has Accepted a Rehab Referral to: [facility] - Medication Discharge Medications: Ambulatory Orders NK [No Known Home Medication] 07/29/17 - Diagnosis (1) Alcohol dependence with uncomplicated withdrawal Current Visit: Yes Status: Acute (2) Nicotine dependence Current Visit: Yes Status: Acute Qualifiers: Nicotine product type: cigarettes Substance use status: in withdrawal Qualified Code(s): F17.213 - Nicotine dependence, cigarettes, with withdrawal - AMA Did Patient Leave Against Medical Advice: No
[2017-08-02 09:55] VITALS: BP 120/66; PULSE 90; TEMP 99.6
[2017-08-02] MEDS: NICOTINE 14 MG/24 HOURS TOPICAL PATCH TD SCH (10:12)
[2017-08-02] MEDS: PRENATAL VITAMINS W/ FOLIC ACID TABLET (FP) PO SCH (10:13)
== END 2017-08-02 10:49 | disposition home or self-care (01) | DRG 775 ==
LOC: YASAS 15:51 → Y6N 20:00
PROVIDERS: ADMIT Family Medicine Addiction Medicine; ATTEND Family Medicine Addiction Medicine
PROC: HZ2ZZZZ Detoxification Services for Substance Abuse Treatment (ICD-10-PCS; principal; 2017-07-29)
DX: F10.230 Alcohol dependence with withdrawal, uncomplicated (principal); F17.213 Nicotine dependence, cigarettes, with withdrawal; F19.24 Other psychoactive substance dependence with psychoactive substance-induced mood disorder; F32.9 Major depressive disorder, single episode, unspecified; E05.90 Thyrotoxicosis, unspecified without thyrotoxic crisis or storm; Z59.0 Homelessness
CPT/HCPCS: 36415; 80053; 81003; 85027; 86593; 87389; 93005; 93010

== ENCOUNTER 2018-08-30 12:11 | Inpatient (IN) | payer OTHER ==
[2018-08-30 20:50] VITALS: BMI 33.6
--- NOTE | 2018-08-30 22:49 | HP ---
"CIWA Score Nausea/Vomitin Muscle Tremors: 4-Moderate,w/Arms Extend Anxiety: 4-Mod. Anxious/Guarded Agitation: 4-Moderately Restless Paroxysmal Sweats: 3 (Increased facial moisture) Orientation: 0-Oriented Tacttile Disturbances: 0-None Auditory Disturbances: 0-None Visual Disturbances: 0-None Headache: 0-None Present CIWA-Ar Total Score: 18 - Admission Criteria [facility]ASAS Guidelines: Admission for Medically Managed Detox: Requires at least one of the followin. CIWA greater than 12 2. Seizures within the past 24 hours 3. Delirium tremens within the past 24 hours 4. Hallucinations within the past 24 hours 5. Acute intervention needed for co occurring medical disorder 6. Acute intervention needed for co occurring psychiatric disorder 7. Severe withdrawal that cannot be handled at a lower level of care (continued vomiting, continued diarrhea, abnormal vital signs) requiring intravenous medication and/or fluids 8. Patient presents the following: CIWA greater than 12 Admission Criteria Met: Admission criteria met Admission ROS [facility] Chief Complaint: here for alcohol withdrawal. Allergies/Adverse Reactions: Allergies Allergy/AdvReac Type Severity Reaction Status Date / Time No Known Allergies Allergy Verified 08/30/18 20:41 History of Present Illness: 58 yo w/ alcohol withdrawal presents for detox. Last [facility] visit 1 year ago. [facility] was able to maintain sobriety x 5 months after last visit. Seen in ED and given Xanax Alcohol use began at age 13. Current use 1 pint liquor + beer daily Nicotine use began at age 15. 1 cig per day [place] 0.127 NOW 0.074 Stopped cocaine/crack 1 week. Stopped Marijuana 2 weeks. Denies seizures, blackouts, overdoses. PMHx: Crampy/achy painful muscles - use muscle relaxants. Red (R) eye: Poked self in eye 1 week ago - seen at [facility]. Bilateral Cataract extractions. Hyperthyroid - states off medications Hx PPD + States took INH x 1 year MHHx: Anxiety. Bipolar. Last took MH meds 2 years ago. Had a bad reaction to Seroquel. Denies thoughts of harming self or others. Wants to see a Provider. Search Terms: Kyleigh Falk, 1960 Search Date: 08/30/2018 10:44:36 PM The Drug Utilization Report below displays all of the controlled substance prescriptions, if any, that your patient has filled in the last twelve months. The information displayed on this report is compiled from pharmacy submissions to the Department, and accurately reflects the information as submitted by the pharmacies. This report was requested by: Dorina Chacon | Reference #: [id number] There are no results for the search terms that you entered. Exam Limitations: No Limitations - Ebola screening Have you traveled outside of the country in the last 21 days: No Have you had contact with anyone from an Ebola affected area: No Have you been sick,other than usual withdrawal symptoms: No (Denies recent exposure to measles) Do you have a fever: No - Review of Systems Constitutional: Chills, Diaphoresis EENT: reports: Cataracts (Cataract removal 1 year ago.), Blurred Vision, Tearing (both eyes), Dental Problems (bad teeth. Chews and swallows ok.), Other (Increased redness (R) eye. Denies burning/pain FB sensation) Respiratory: reports: SOB with Exertion (Stair climbing) Cardiac: reports: No Symptoms Reported GI: reports: Nausea, Indigestion (acid reflux - r/t food choices) : reports: No Symptoms Reported Musculoskeletal: reports: Muscle Pain (pain/cramps muscles -especially legs) Integumentary: reports: No Symptoms Reported Neuro: reports: Tremors Endocrine: reports: Increased Thirst Hematology: reports: No Symptoms Reported Psychiatric: reports: Judgement Intact, Orientated x3, Agitated, Anxious, Depressed (Denies thoughts of harming self or others.) Patient History - Patient Medical History Hx Anemia: No Hx Asthma: No Hx Chronic Obstructive Pulmonary Disease (COPD): No Hx Cancer: No Hx Cardiac Disorders: No Hx Congestive Heart Failure: No Hx Hypertension: No Hx Hypercholesterolemia: No Hx Pacemaker: No HX Cerebrovascular Accident: No Hx Seizures: No Hx Dementia: No Hx Diabetes: No Hx Gastrointestinal Disorders: No Hx Liver Disease: No Hx Genitourinary Disorders: No Hx Sexually Transmitted Disorders: No Hx Renal Disease (ESRD): No Hx Thyroid Disease: Yes (hyperthyroidism - TAPAZOLE 10MG d/c since 2017) Hx Human Immunodeficiency Virus (HIV): No (NEGATIVE 1 YR AGO) Hx Hepatitis C: No Hx Depression: Yes Hx Suicide Attempt: No Hx Bipolar Disorder: No Hx Schizophrenia: No - Patient Surgical History Past Surgical History: Yes Hx Neurologic Surgery: No Hx Cataract Extraction: Yes (01/2016 RIGHT) Hx Cardiac Surgery: No Hx Lung Surgery: No Hx Breast Surgery: No Hx Breast Biopsy: No Hx Abdominal Surgery: No Hx Appendectomy: No Hx Cholecystectomy: No Hx Genitourinary Surgery: No Hx Section: No Hx Orthopedic Surgery: No Hx Hysterectomy: No Other Surgical History: ectopic Anesthesia Reaction: No - PPD History Previous Implant?: Yes Documented Results: Positive w/o proof Implanted On Prior [facility] Admission?: Yes Date: 07/22/14 PPD to be Administered?: No - Reproductive History Patient is a Female of Child Bearing Age (11 -55 yrs old): No Last Menstrual Period: 08/13/05 - Smoking Cessation Smoking history: Current some day smoker Have you smoked in the past 12 months: No Aproximately how many cigarettes per day: 1 Cigars Per Day: 0 Hx Chewing Tobacco Use: No Initiated information on smoking cessation: Yes 'Breaking Loose' booklet given: 08/30/18 - Substance & Tx. History Hx Alcohol Use: Yes Substance Use Type: Alcohol, Cocaine, Marijuana Hx Substance Use Treatment: Yes (detox, rehab) - Substances abused Alcohol Substance route: Oral Frequency: Daily Amount used: liquor-1 pint, beer- 2 six pack Age of first use: 13 Date of last use: 08/30/18 Cocaine Substance route: Inhalation Frequency: Daily Amount used: 1 bag Age of first use: 28 Date of last use: 08/27/18 Marijuana/Hashish Substance route: Smoking Frequency: Daily Amount used: 1 bag Age of first use: 13 Date of last use: 08/23/18 Family Disease History - Family Disease History Family Disease History: Other: Father (), Mother () Admission Physical Exam S - Vital Signs Vital Signs: Vital Signs - 24 hr 08/30/18 08/30/18 20:41 21:15 Temperature 98.0 F 98.0 F Pulse Rate 80 80 Respiratory 16 16 Rate Blood Pressure 111/78 111/78 - Physical General Appearance: Yes: Nourished, Mild Distress, Tremorous, Sweating ( Increased facial moisture), Anxious HEENTM: Yes: EOMI, Hearing grossly Normal, Normocephalic, Normal Voice, Pharynx Normal, Other (Pupils fixed - w/ IOL; (R) eye sclera w/ increased erythema. Bilateral tearing.) Respiratory: Yes: Lungs Clear, Normal Breath Sounds, No Respiratory Distress Neck: Yes: No masses,lesions,Nodules, Supple Breast: Yes: Breast Exam Deferred Cardiology: Yes: Regular Rhythm, Regular Rate (HR: 68), S1, S2 Abdominal: Yes: Non Tender, Soft, Increased Bowel Sounds, Protuberent ( Increased abdominal adiposity) Genitourinary: Yes: Within Normal Limits Back: Yes: Normal Inspection Musculoskeletal: Yes: full range of Motion, Gait Steady Extremities: Yes: Normal Capillary Refill, Normal Range of Motion, Non-Tender, Tremors (increased tremors w/ arm elevation) Neurological: Yes: Fully Oriented, Alert, Motor Strength 5/5, Normal Response Integumentary: Yes: Normal Color, Warm Lymphatic: Yes: Within Normal Limits - Diagnostic (1) History of cataract extraction Current Visit: Yes Status: Chronic Qualifiers: Laterality: unspecified laterality Qualified Code(s): Z98.49 - Cataract extraction status, unspecified eye Comment: Bilateral cataract extractions (2) Redness of right eye Current Visit: Yes Status: Chronic (3) Alcohol dependence with uncomplicated withdrawal Current Visit: Yes Status: Acute (4) History of hyperthyroidism Current Visit: Yes Status: Chronic (5) History of positive PPD Current Visit: Yes Status: Chronic (6) Cocaine use disorder, moderate, in early remission Current Visit: Yes Status: Acute (7) Cannabis use disorder, moderate, in early remission Current Visit: Yes Status: Acute Cleared for Admission S - Detox or Rehab [facility] Level of Care: Medically Managed Detox Regimen/Protocol: Librium Claeared for Rehab Admission: No Breathalyzer - Breathalyzer Breathalyzer: 0.127 Urine Drug Screen - Test Device Lot number: [id number] Expiration date: 01/16/20 - Control Is test valid?: Yes - Results Urine drug screen results: BZO-Benzodiazepines Inpatient Rehab Admission - Rehab Decision to Admit Inpatient rehab admission?: No"
[2018-08-30] MEDS ORDERED: MENTHOL/PHENOL 1 EACH UD MM PRN (23:16)
[2018-08-30] MEDS ORDERED: MAGNESIUM CITRATE 300 ML BOTTLE PO PRN (23:16)
[2018-08-30] MEDS ORDERED: MAG HYDROX/AL HYDROX/SIMETH 30 ML UNIT-DOSE CUP PO PRN (23:16)
[2018-08-30] MEDS ORDERED: MAGNESIUM HYDROX 2400MG/30ML ORAL SUSPENSION 30 ML CUP PO PRN (23:16)
[2018-08-30] MEDS ORDERED: BISMUTH SUBSALICYLATE 524 MG/30 ML UD PO PRN (23:16)
[2018-08-30] MEDS ORDERED: MELATONIN 5 MG TABLETS PO PRN (23:16)
[2018-08-30] MEDS ORDERED: ACETAMINOPHEN 325 MG TABLET (FP) PO PRN ×2 (23:16)
[2018-08-30] MEDS ORDERED: VITAMINS A AND D TOPICAL OINTMENT 60 GM TUBE TP PRN (23:20)
[2018-08-31] MEDS ORDERED: chlordiazePOXIDE HCL 10 MG CAPSULE PO PRN (00:26)
[2018-08-31] MEDS ORDERED: chlordiazePOXIDE HCL 25 MG CAPSULE PO ONE (00:26)
[2018-08-31] MEDS: chlordiazePOXIDE HCL 25 MG CAPSULE PO SCH ×3 (05:18→22:28)
[2018-08-31] MEDS: METHOCARBAMOL 500 MG TABLET PO PRN ×3 (05:19→22:33)
[2018-08-31] MEDS: PRENATAL VITAMINS W/ FOLIC ACID TABLET (FP) PO SCH (10:36)
[2018-08-31 12:19] LABS: HEMATOCRIT 39.9 % (32.4-45.2); HEMOGLOBIN 12.7 GM/dL (10.7-15.3); MCHC 31.8 g/dl (32.0-36.0); MEAN CELL VOLUME 75.7 fl (80-96); MEAN PLT VOLUME 9.2 fl (7.5-11.1); RBC 5.28 M/mm3 (3.60-5.2); RDW 17.3 % (11.6-15.6)
[2018-08-31 12:22] LABS: ALBUMIN 3.6 g/dl (3.4-5.0); BILIRUBIN,TOTAL 0.2 mg/dL (0.2-1); BLOOD UREA NITROGEN 10.4 mg/dL (7-18); CALCIUM 9.1 mg/dL (8.5-10.1); CREATININE 0.8 mg/dL (0.55-1.3); POTASSIUM 4.7 mmol/L (3.5-5.1); TOT PROT 7.4 g/dl (6.4-8.2)
--- NOTE | 2018-08-31 12:28 | PN ---
S CIWA - CIWA Score Nausea/Vomitin-Mild Nausea/No Vomiting Muscle Tremors: 3 Anxiety: 2 Agitation: 2 Paroxysmal Sweats: 1-Minimal Palms Moist Orientation: 2-Disoriented Date<2 days Tacttile Disturbances: 1-Very Mild Itch/Numbness Auditory Disturbances: 0-None Visual Disturbances: 0-None Headache: 2-Mild CIWA-Ar Total Score: 14 BHS Progress Note (SOAP) Subjective: 58 years old female admitted on 08/30/18 for alcohol withdrawal sx medical history of hiv and positive ppd feeling tired prefers to rest on bed today Objective: 08/31/18 12:36 Vital Signs Temperature 97.8 F 08/31/18 09:17 Pulse Rate 92 H 08/31/18 09:17 Respiratory Rate 19 08/31/18 09:17 Blood Pressure 101/54 L 08/31/18 09:17 O2 Sat by Pulse Oximetry (%) Laboratory Last Values Sodium 143 mmol/L (136-145) 08/31/18 07:00 Potassium 4.7 mmol/L (3.5-5.1) 08/31/18 07:00 Chloride 106 mmol/L (98-107) 08/31/18 07:00 Carbon Dioxide 34 mmol/L (21-32) H 08/31/18 07:00 Anion Gap 2 MMOL/L (8-16) L 08/31/18 07:00 BUN 10.4 mg/dL (7-18) 08/31/18 07:00 Creatinine 0.8 mg/dL (0.55-1.3) 08/31/18 07:00 Est GFR (CKD-EPI)AfAm 92.87 08/31/18 07:00 Est GFR (CKD-EPI)NonAf 80.13 08/31/18 07:00 Random Glucose 69 mg/dL (74-106) L 08/31/18 07:00 Calcium 9.1 mg/dL (8.5-10.1) 08/31/18 07:00 Total Bilirubin 0.2 mg/dL (0.2-1) 08/31/18 07:00 AST 44 U/L (15-37) H 08/31/18 07:00 ALT 55 U/L (13-61) 08/31/18 07:00 Alkaline Phosphatase 97 U/L (45-117) 08/31/18 07:00 Total Protein 7.4 g/dl (6.4-8.2) 08/31/18 07:00 Albumin 3.6 g/dl (3.4-5.0) 08/31/18 07:00 lab noted Assessment: 08/31/18 12:36 alcohol withdrawal sx Plan: continue alcohol detox
[2018-08-31 13:26] LABS: PLATELET COUNT 274 K/MM3 (134-434)
--- NOTE | 2018-08-31 14:45 | EKG ---
Test Reason : Blood Pressure : / mmHG Vent. Rate : 074 BPM Atrial Rate : 074 BPM P-R Int : 154 ms QRS Dur : 080 ms QT Int : 440 ms P-R-T Axes : 058 032 065 degrees QTc Int : 488 ms NORMAL SINUS RHYTHM PROLONGED QT ABNORMAL ECG WHEN COMPARED WITH ECG OF 29-JUL-2017 22:29, T WAVE INVERSION NO LONGER EVIDENT IN INFERIOR LEADS Confirmed by Jackson Frankel MD ([id number]) on 08/31/2018 2:45:33 PM Referred By: QUINCY Confirmed By:Jackson Frankel MD
[2018-08-31] MEDS: THIAMINE HCL 100 MG TABLET (FP) PO SCH (22:28)
[2018-08-31] MEDS: IBUPROFEN 400 MG TABLET (FP) PO PRN (22:29)
[2018-09-01] MEDS: METHOCARBAMOL 500 MG TABLET PO PRN ×2 (06:05→22:10)
[2018-09-01] MEDS: IBUPROFEN 400 MG TABLET (FP) PO PRN ×2 (06:05→22:10)
[2018-09-01] MEDS: chlordiazePOXIDE 5 MG CAPSULE PO SCH ×3 (06:53→22:06)
[2018-09-01] MEDS: PRENATAL VITAMINS W/ FOLIC ACID TABLET (FP) PO SCH (10:29)
--- NOTE | 2018-09-01 16:51 | PN ---
[facility] CIWA - CIWA Score Nausea/Vomitin-Mild Nausea/No Vomiting Muscle Tremors: 2 Anxiety: 2 Agitation: 3 Paroxysmal Sweats: 1-Minimal Palms Moist Orientation: 0-Oriented Tacttile Disturbances: 0-None Auditory Disturbances: 0-None Visual Disturbances: 0-None Headache: 0-None Present CIWA-Ar Total Score: 9 S Progress Note (SOAP) Subjective: report long history of bipolar and was taking mood stabilizer depakote worked well for her bipolar psy counsultation in placed waiting for recommendation patient is calm and cooperative appropriate social activities with peers Objective: 09/01/18 16:54 Vital Signs Temperature 97.5 F L 09/01/18 13:39 Pulse Rate 79 09/01/18 13:39 Respiratory Rate 18 09/01/18 13:39 Blood Pressure 131/80 09/01/18 13:39 O2 Sat by Pulse Oximetry (%) Laboratory Last Values WBC 7.0 K/mm3 (4.0-10.0) 08/31/18 07:00 RBC 5.28 M/mm3 (3.60-5.2) H 08/31/18 07:00 Hgb 12.7 GM/dL (10.7-15.3) 08/31/18 07:00 Hct 39.9 % (32.4-45.2) 08/31/18 07:00 MCV 75.7 fl (80-96) L 08/31/18 07:00 MCH 24.0 pg (25.7-33.7) L 08/31/18 07:00 MCHC 31.8 g/dl (32.0-36.0) L 08/31/18 07:00 RDW 17.3 % (11.6-15.6) H 08/31/18 07:00 Plt Count 274 K/MM3 (134-434) D 08/31/18 07:00 MPV 9.2 fl (7.5-11.1) 08/31/18 07:00 Sodium 143 mmol/L (136-145) 08/31/18 07:00 Potassium 4.7 mmol/L (3.5-5.1) 08/31/18 07:00 Chloride 106 mmol/L (98-107) 08/31/18 07:00 Carbon Dioxide 34 mmol/L (21-32) H 08/31/18 07:00 Anion Gap 2 MMOL/L (8-16) L 08/31/18 07:00 BUN 10.4 mg/dL (7-18) 08/31/18 07:00 Creatinine 0.8 mg/dL (0.55-1.3) 08/31/18 07:00 Est GFR (CKD-EPI)AfAm 92.87 08/31/18 07:00 Est GFR (CKD-EPI)NonAf 80.13 08/31/18 07:00 Random Glucose 69 mg/dL (74-106) L 08/31/18 07:00 Calcium 9.1 mg/dL (8.5-10.1) 08/31/18 07:00 Total Bilirubin 0.2 mg/dL (0.2-1) 08/31/18 07:00 AST 44 U/L (15-37) H 08/31/18 07:00 ALT 55 U/L (13-61) 08/31/18 07:00 Alkaline Phosphatase 97 U/L (45-117) 08/31/18 07:00 Total Protein 7.4 g/dl (6.4-8.2) 08/31/18 07:00 Albumin 3.6 g/dl (3.4-5.0) 08/31/18 07:00 RPR Titer Nonreactive (NONREACTIVE) 08/31/18 07:00 lab noted Assessment: 09/01/18 16:55 alcohol withdrawal sx Plan: continue alcohol detox
[2018-09-01] MEDS: THIAMINE HCL 100 MG TABLET (FP) PO SCH (22:06)
[2018-09-02] MEDS ORDERED: chlordiazePOXIDE HCL 10 MG CAPSULE PO PRN
[2018-09-02] MEDS: IBUPROFEN 400 MG TABLET (FP) PO PRN ×2 (05:53→22:44)
[2018-09-02] MEDS: chlordiazePOXIDE HCL 10 MG CAPSULE PO SCH ×3 (05:53→22:41)
[2018-09-02] MEDS: METHOCARBAMOL 500 MG TABLET PO PRN ×3 (05:53→22:45)
--- NOTE | 2018-09-02 08:51 | CONSULT ---
[facility] Psychiatric Consult - Data Date of interview: 09/02/18 Admission source: [facility] Identifying data: Patient is a 58 year old single female, mother of one, unemployed, homeless, and is supported by [facility] benefits. This is one of multiple admissions for patient. Patient admitted to for alcohol and cocaine dependence. Substance Abuse History: - Smoking Cessation. Smoking history: Current some day smoker. Have you smoked in the past 12 months: No. Aproximately how many cigarettes per day: 1. Cigars Per Day: 0. Hx Chewing Tobacco Use: No. Initiated information on smoking cessation: Yes. 'Breaking Loose' booklet given : 08/30/18. - Substance & Tx. History. Hx Alcohol Use: Yes. Substance Use Type: Alcohol, Cocaine, Marijuana. Hx Substance Use Treatment: Yes (detox, rehab). - Substances abused. Alcohol. Substance route: Oral. Frequency: Daily. Amount used: liquor-1 pint, beer- 2 six pack. Age of first use: 13. Date of last use: 08/30/18. Cocaine. Substance route: Inhalation. Frequency: Daily. Amount used: 1 bag. Age of first use: 28. Date of last use : 08/27/18. Marijuana/Hashish. Substance route: Smoking. Frequency: Daily. Amount used: 1 bag. Age of first use: 13. Date of last use: 08/23/18 Medical History: Significant for Hyperthyroidism, Bilateral Cataract extractions Psychiatric History: Patient denies h/o psychiatric hospitalization and suicide attempt. Ms. Falk reports seeing a psychiatrist three years ago at the [facility] in [facility] who prescribed her seroquel and assisted her with [facility] paperwork. She denies current outpatient psychiatric care. Patient unable to provide a cohesive history. At present patient reports stable mood but reports mild anxiety on the unit. Physical/Sexual Abuse/Trauma History: denies. Mental Status Exam - Mental Status Exam Alert and Oriented to: Time, Place, Person Cognitive Function: Good Patient Appearance: Well Groomed Mood: Euthymic Affect: Appropriate Patient Behavior: Appropriate, Cooperative Speech Pattern: Appropriate Voice Loudness: Normal Thought Process: Intact, Goal Oriented Thought Disorder: Not Present Hallucinations: Denies Suicidal Ideation: Denies Homicidal Ideation: Denies Insight/Judgement: Poor Sleep: Fair Appetite: Fair Muscle strength/Tone: Normal Gait/Station: Normal Psychiatric Findings - Problem List ([place] 1, 2,3) (1) Alcohol dependence with uncomplicated withdrawal Current Visit: Yes Status: Acute (2) Cannabis use disorder, moderate, in early remission Current Visit: Yes Status: Acute (3) Cocaine use disorder, moderate, in early remission Current Visit: Yes Status: Acute - Initial Treatment Plan Initial Treatment Plan: Psychoeducation provided. Detoxification in progress. Will order vistaril 25mg q6h for anxiety. Patient informed that melatonin 5mg is ordered for insomnia. Benefits and side effects discussed. Verbal consent given.
[2018-09-02] MEDS ORDERED: hydrOXYzine HCL 25 MG TABLET (FP) PO PRN (08:58)
--- NOTE | 2018-09-02 09:59 | PN ---
S CIWA - CIWA Score Nausea/Vomitin-No Nausea/No Vomiting Muscle Tremors: 2 Anxiety: 1-Mildly Anxious Agitation: 1-Slight > Activity Paroxysmal Sweats: No Perspiration Orientation: 0-Oriented Tacttile Disturbances: 0-None Auditory Disturbances: 1-Very Mild (not threatening denies fear of the "noise") Visual Disturbances: 0-None Headache: 0-None Present CIWA-Ar Total Score: 5 S Progress Note (SOAP) Subjective: 58 years old female with long history of bipolar disorder reported that she is taking depakote last dose "last year" patient will return to her primary care provider for depakote patient stated that she will "go straight to my doctor" upon discharge from detox patient is alert oriented x 3 mild "noise" in ear not feeling threatening no fear of the noise Objective: 09/02/18 10:02 Vital Signs Temperature 97.0 F L 09/02/18 09:27 Pulse Rate 90 09/02/18 09:27 Respiratory Rate 20 09/02/18 09:27 Blood Pressure 133/77 09/02/18 09:27 O2 Sat by Pulse Oximetry (%) Laboratory Last Values WBC 7.0 K/mm3 (4.0-10.0) 08/31/18 07:00 RBC 5.28 M/mm3 (3.60-5.2) H 08/31/18 07:00 Hgb 12.7 GM/dL (10.7-15.3) 08/31/18 07:00 Hct 39.9 % (32.4-45.2) 08/31/18 07:00 MCV 75.7 fl (80-96) L 08/31/18 07:00 MCH 24.0 pg (25.7-33.7) L 08/31/18 07:00 MCHC 31.8 g/dl (32.0-36.0) L 08/31/18 07:00 RDW 17.3 % (11.6-15.6) H 08/31/18 07:00 Plt Count 274 K/MM3 (134-434) D 08/31/18 07:00 MPV 9.2 fl (7.5-11.1) 08/31/18 07:00 Sodium 143 mmol/L (136-145) 08/31/18 07:00 Potassium 4.7 mmol/L (3.5-5.1) 08/31/18 07:00 Chloride 106 mmol/L (98-107) 08/31/18 07:00 Carbon Dioxide 34 mmol/L (21-32) H 08/31/18 07:00 Anion Gap 2 MMOL/L (8-16) L 08/31/18 07:00 BUN 10.4 mg/dL (7-18) 08/31/18 07:00 Creatinine 0.8 mg/dL (0.55-1.3) 08/31/18 07:00 Est GFR (CKD-EPI)AfAm 92.87 08/31/18 07:00 Est GFR (CKD-EPI)NonAf 80.13 08/31/18 07:00 Random Glucose 69 mg/dL (74-106) L 08/31/18 07:00 Calcium 9.1 mg/dL (8.5-10.1) 08/31/18 07:00 Total Bilirubin 0.2 mg/dL (0.2-1) 08/31/18 07:00 AST 44 U/L (15-37) H 08/31/18 07:00 ALT 55 U/L (13-61) 08/31/18 07:00 Alkaline Phosphatase 97 U/L (45-117) 08/31/18 07:00 Total Protein 7.4 g/dl (6.4-8.2) 08/31/18 07:00 Albumin 3.6 g/dl (3.4-5.0) 08/31/18 07:00 RPR Titer Nonreactive (NONREACTIVE) 08/31/18 07:00 lab noted Assessment: 09/02/18 10:02 mild alcohol withdrawal sx Plan: continue alcohol detox
[2018-09-02] MEDS: PRENATAL VITAMINS W/ FOLIC ACID TABLET (FP) PO SCH (10:25)
[2018-09-02] MEDS: THIAMINE HCL 100 MG TABLET (FP) PO SCH (22:41)
[2018-09-03] MEDS ORDERED: chlordiazePOXIDE HCL 10 MG CAPSULE PO ONE (05:00)
[2018-09-03] MEDS: METHOCARBAMOL 500 MG TABLET PO PRN (05:38)
[2018-09-03 09:07] VITALS: BP 126/77; PULSE 84; TEMP 98.4
[2018-09-03] MEDS: PRENATAL VITAMINS W/ FOLIC ACID TABLET (FP) PO SCH (09:19)
[2018-09-03] MEDS: IBUPROFEN 400 MG TABLET (FP) PO PRN (09:21)
--- NOTE | 2018-09-03 17:31 | DS ---
[facility] Detox Discharge Summary Admission Date: 08/30/18 Discharge Date: 09/03/18 - History Present History: Alcohol Dependence, Cannabis Dependence, Cocaine Dependence Additional Comments: PATIENT GOING HOME FOR NEXT COUPLE OF DAYS TO ATTEND TO PERSONAL MATTERS; THEN SHE WILL GO TO [facility] ([place], [place]) FOR AFTERCARE ON 09/06/2018. PATIENT WAS DISCHARGED FROM DETOX UNIT IN STABLE MEDICAL CONDITION. Pertinent Past History: History Of Positive PPD (treated), History Of Bilateral Cataract Extractions, Depression, History Of Hyperthyroidism, Bipolar Disorder. - Physical Exam Results Vital Signs: Vital Signs Temperature 98.4 F 09/03/18 09:05 Pulse Rate 84 09/03/18 09:05 Respiratory Rate 18 09/03/18 09:05 Blood Pressure 126/77 09/03/18 09:05 O2 Sat by Pulse Oximetry (%) Pertinent Admission Physical Exam Findings: WITHDRAWAL SYMPTOMS. Laboratory Tests 08/31/18 08/31/18 08/31/18 07:00 07:00 07:00 WBC 7.0 RBC 5.28 H Hgb 12.7 Hct 39.9 MCV 75.7 L MCH 24.0 L MCHC 31.8 L RDW 17.3 H Plt Count 274 D MPV 9.2 Sodium 143 Potassium 4.7 Chloride 106 Carbon Dioxide 34 H Anion Gap 2 L BUN 10.4 Creatinine 0.8 Est GFR (CKD-EPI)AfAm 92.87 Est GFR (CKD-EPI)NonAf 80.13 Random Glucose 69 L Calcium 9.1 Total Bilirubin 0.2 AST 44 H ALT 55 Alkaline Phosphatase 97 Total Protein 7.4 Albumin 3.6 RPR Titer Nonreactive LABS NOTED. - Treatment Hospital Course: Detox Protocol Followed, Detoxed Safely, Responded well, Discharged Condition Good, Rehab Referral Accepted Patient has Accepted a Rehab Referral to: [facility] ([place], [place]). - Medication Discharge Medications: Ambulatory Orders NK [No Known Home Medication] 07/29/17 - Diagnosis (1) Alcohol dependence with uncomplicated withdrawal Status: Acute (2) Cannabis use disorder, moderate, in early remission Status: Acute (3) Cocaine use disorder, moderate, in early remission Status: Acute (4) History of cataract extraction Status: Chronic Qualifiers: Laterality: unspecified laterality Qualified Code(s): Z98.49 - Cataract extraction status, unspecified eye (5) History of hyperthyroidism Status: Chronic (6) History of positive PPD Status: Chronic (7) Redness of right eye Status: Chronic (8) Hyperthyroidism Status: Suspected - AMA Did Patient Leave Against Medical Advice: No
== END 2018-09-03 10:00 | disposition home or self-care (01) | DRG 774 ==
LOC: YASAS 12:11 → Y3N 23:22
PROVIDERS: ADMIT Surgery; ATTEND Surgery
PROC: HZ2ZZZZ Detoxification Services for Substance Abuse Treatment (ICD-10-PCS; principal; 2018-08-30)
DX: F10.230 Alcohol dependence with withdrawal, uncomplicated (principal); F14.20 Cocaine dependence, uncomplicated; F12.20 Cannabis dependence, uncomplicated; F31.9 Bipolar disorder, unspecified; F41.9 Anxiety disorder, unspecified; F32.9 Major depressive disorder, single episode, unspecified; E05.90 Thyrotoxicosis, unspecified without thyrotoxic crisis or storm; R76.11 Nonspecific reaction to tuberculin skin test without active tuberculosis; Z98.41 Cataract extraction status, right eye; Z98.42 Cataract extraction status, left eye
CPT/HCPCS: 36415; 71046-TC-FY; 80053; 84436; 85027; 86593; 93005; 93010

== ENCOUNTER 2018-12-26 13:05 | Inpatient (IN) | payer OTHER ==
[2018-12-26 17:04] VITALS: BMI 31.8
--- NOTE | 2018-12-26 17:42 | HP ---
CIWA Score Nausea/Vomitin Muscle Tremors: 2 Anxiety: 2 Agitation: 2 Paroxysmal Sweats: 1-Minimal Palms Moist Orientation: 0-Oriented Tacttile Disturbances: 1-Very Mild Itch/Numbness Auditory Disturbances: 1-Very Mild Visual Disturbances: 0-None Headache: 2-Mild CIWA-Ar Total Score: 13 - Admission Criteria [facility] Guidelines: Admission for Medically Managed Detox: Requires at least one of the followin. CIWA greater than 12 2. Seizures within the past 24 hours 3. Delirium tremens within the past 24 hours 4. Hallucinations within the past 24 hours 5. Acute intervention needed for co occurring medical disorder 6. Acute intervention needed for co occurring psychiatric disorder 7. Severe withdrawal that cannot be handled at a lower level of care (continued vomiting, continued diarrhea, abnormal vital signs) requiring intravenous medication and/or fluids 8. Admitting History and Physical - Past Medical History ...LMP: 08/13/05 - Smoking History Smoking history: Current some day smoker Have you smoked in the past 12 months: No Aproximately how many cigarettes per day: 1 - Alcohol/Substance Use Hx Alcohol Use: Yes Admission ROS [facility] Chief Complaint: i need help to stop drinking alcohol,cocaine, Allergies/Adverse Reactions: Allergies Allergy/AdvReac Type Severity Reaction Status Date / Time No Known Allergies Allergy Verified 12/26/18 16:57 History of Present Illness: this 58 years old female with alcohol and cocaine dependence seeking detox, withdrawal symptom last detox C 08/30/18 to 09/03/18 multiple admissions in detox but keep relapsing unemployed,[facility] [place] [facility] nicotine 1 or 2 no significant period of sobriety Exam Limitations: No Limitations - Ebola screening Have you traveled outside of the country in the last 21 days: No (N) Have you had contact with anyone from an Ebola affected area: No Do you have a fever: No - Review of Systems Constitutional: Loss of Appetite, Malaise, Night Sweats, Changes in sleep, Weakness, Unintentional Wgt. Loss EENT: reports: Tearing, Nose Congestion Respiratory: reports: No Symptoms reported Cardiac: reports: No Symptoms Reported GI: reports: Nausea, Vomiting, Abdominal cramping : reports: No Symptoms Reported Musculoskeletal: reports: Back Pain, Muscle Pain Integumentary: reports: Dryness Neuro: reports: Headache, Tremors Endocrine: reports: No Symptoms Reported Hematology: reports: No Symptoms Reported Psychiatric: reports: No Sypmtoms Reported, Judgement Intact, Mood/Affect Appropiate, Orientated x3 Other Systems: Reviewed and Negative Patient History - Patient Medical History Hx Anemia: No Hx Asthma: No Hx Chronic Obstructive Pulmonary Disease (COPD): No Hx Cancer: No Hx Cardiac Disorders: No Hx Congestive Heart Failure: No Hx Hypertension: No Hx Hypercholesterolemia: No Hx Pacemaker: No HX Cerebrovascular Accident: No Hx Seizures: No Hx Dementia: No Hx Diabetes: No Hx Gastrointestinal Disorders: No Hx Liver Disease: No Hx Genitourinary Disorders: No Hx Sexually Transmitted Disorders: No Hx Renal Disease (ESRD): No Hx Thyroid Disease: Yes (hyperthyroidism - TAPAZOLE 10MG d/c since 2016) Hx Human Immunodeficiency Virus (HIV): No (11/04 negative) Hx Hepatitis C: No Hx Depression: Yes (no med) Hx Suicide Attempt: No Hx Bipolar Disorder: No Hx Schizophrenia: No Other Medical History: no suicidal,no homicidal - Patient Surgical History Past Surgical History: Yes Hx Neurologic Surgery: No Hx Cataract Extraction: Yes (01/2016 RIGHT) Hx Cardiac Surgery: No Hx Lung Surgery: No Hx Breast Surgery: No Hx Breast Biopsy: No Hx Abdominal Surgery: No Hx Appendectomy: No Hx Cholecystectomy: No Hx Genitourinary Surgery: No Hx Section: No Hx Orthopedic Surgery: No Hx Hysterectomy: No Other Surgical History: ectopic 47 years ago Anesthesia Reaction: No - PPD History Previous Implant?: Yes Documented Results: Positive w/proof Implanted On Prior [facility] Admission?: Yes Date: 08/31/18 Results: chest neg PPD to be Administered?: No - Reproductive History Patient is a Female of Child Bearing Age (11 -55 yrs old): No Last Menstrual Period: 08/13/05 Patient : No - Smoking Cessation Smoking history: Current some day smoker Have you smoked in the past 12 months: No Aproximately how many cigarettes per day: 1 Cigars Per Day: 0 Hx Chewing Tobacco Use: No Initiated information on smoking cessation: Yes 'Breaking Loose' booklet given: 12/26/18 - Substance & Tx. History Hx Alcohol Use: Yes Hx Substance Use: Yes Substance Use Type: Alcohol, Cocaine, Marijuana Hx Substance Use Treatment: Yes (08/30/18 to 09/03/18) - Substances abused Alcohol Substance route: Oral Frequency: Daily Amount used: liquor-1 pint, beer- 2 six pack Age of first use: 13 Date of last use: 12/25/18 Cocaine Substance route: Inhalation Frequency: 1-2 times per week Amount used: $10 Age of first use: 28 Date of last use: 12/24/18 Marijuana/Hashish Substance route: Smoking Frequency: Daily Amount used: 1 bag Age of first use: 13 Date of last use: 12/25/18 Admission Physical Exam [facility] - Vital Signs Vital Signs: Vital Signs - 24 hr 12/26/18 16:54 Temperature 99.2 F Pulse Rate 98 H Respiratory 20 Rate Blood Pressure 124/68 - Physical General Appearance: Yes: Moderate Distress, Tremorous, Irritable, Sweating, Anxious HEENTM: Yes: Normal ENT Inspection, KADEN, Pharynx Normal Respiratory: Yes: Lungs Clear, Normal Breath Sounds, No Respiratory Distress Neck: Yes: Within Normal Limits, Supple, Trachea in good position Breast: Yes: Breast Exam Deferred Cardiology: Yes: Within Normal Limits, Regular Rhythm, Regular Rate, S1, S2 Abdominal: Yes: Within Normal Limits, Normal Bowel Sounds, Non Tender, Soft Genitourinary: Yes: Within Normal Limits Back: Yes: Muscle Spasm Musculoskeletal: Yes: Muscle Pain Extremities: Yes: Tremors Neurological: Yes: care advocate II-XII NML intact, Fully Oriented, Alert, Motor Strength 5/5 Integumentary: Yes: Dry Lymphatic: Yes: Within Normal Limits - Diagnostic (1) Alcohol dependence with uncomplicated withdrawal Current Visit: No Status: Acute (2) Cannabis use disorder, moderate, in early remission Current Visit: No Status: Acute (3) Cocaine use disorder, moderate, in early remission Current Visit: No Status: Acute (4) Nicotine dependence Current Visit: No Status: Acute Qualifiers: Nicotine product type: cigarettes Substance use status: in withdrawal Qualified Code(s): F17.213 - Nicotine dependence, cigarettes, with withdrawal Cleared for Admission [facility] - Detox or Rehab [facility] Level of Care: Medically Managed Detox Regimen/Protocol: Librium Breathalyzer - Breathalyzer Breathalyzer: 0 Urine Drug Screen - Test Device Lot number: [id number] Expiration date: 09/15/20 - Control Is test valid?: Yes - Results Drug screen NEGATIVE: No Urine drug screen results: LUIS A-Cocaine, BZO-Benzodiazepines Inpatient Rehab Admission - Rehab Decision to Admit Inpatient rehab admission?: No
[2018-12-26] MEDS ORDERED: MAGNESIUM HYDROX 2400MG/30ML ORAL SUSPENSION 30 ML CUP PO PRN (17:50)
[2018-12-26] MEDS ORDERED: METHOCARBAMOL 500 MG TABLET PO PRN (17:50)
[2018-12-26] MEDS ORDERED: hydrOXYzine PAMOATE 25 MG CAPSULE (FP) PO PRN (17:50)
[2018-12-26] MEDS ORDERED: MAGNESIUM CITRATE 300 ML BOTTLE PO PRN (17:50)
[2018-12-26] MEDS ORDERED: BISMUTH SUBSALICYLATE 524 MG/30 ML UD PO PRN (17:50)
[2018-12-26] MEDS ORDERED: IBUPROFEN 400 MG TABLET (FP) PO PRN (17:50)
[2018-12-26] MEDS ORDERED: chlordiazePOXIDE HCL 25 MG CAPSULE PO PRN (17:50)
[2018-12-26] MEDS ORDERED: ACETAMINOPHEN 325 MG TABLET (FP) PO PRN ×2 (17:50)
[2018-12-26] MEDS ORDERED: MAG HYDROX/AL HYDROX/SIMETH 30 ML UNIT-DOSE CUP PO PRN (17:50)
[2018-12-26] MEDS ORDERED: MELATONIN 5 MG TABLETS PO PRN (17:50)
[2018-12-26] MEDS: THIAMINE HCL 100 MG TABLET (FP) PO SCH (22:17)
[2018-12-26] MEDS: guaiFENesin 200 MG/10 ML 10 ML UNIT-DOSE CUPS PO PRN (22:18)
[2018-12-26] MEDS: chlordiazePOXIDE HCL 25 MG CAPSULE PO SCH (22:18)
[2018-12-27] MEDS: MENTHOL/PHENOL 1 EACH UD MM PRN (05:39)
[2018-12-27] MEDS: chlordiazePOXIDE HCL 25 MG CAPSULE PO SCH ×4 (05:39→22:05)
[2018-12-27] MEDS: guaiFENesin 200 MG/10 ML 10 ML UNIT-DOSE CUPS PO PRN ×4 (05:40→22:06)
[2018-12-27] MEDS: PRENATAL VITAMINS W/ FOLIC ACID TABLET (FP) PO SCH (10:38)
--- NOTE | 2018-12-27 11:28 | PN ---
S CIWA - CIWA Score Nausea/Vomitin-Mild Nausea/No Vomiting Muscle Tremors: 3 Anxiety: 3 Agitation: 1-Slight > Activity Paroxysmal Sweats: 2 Orientation: 0-Oriented Tacttile Disturbances: 1-Very Mild Itch/Numbness Auditory Disturbances: 0-None Visual Disturbances: 0-None Headache: 1-Very Mild CIWA-Ar Total Score: 12 [facility] Progress Note (SOAP) Subjective: 58 years old female admitted on 12/26/18 for alcohol withdrawal sx management treated with librium detox regimen ate breakfast tolerated food and fluid well feeling hot and cold Objective: 12/27/18 11:29 Vital Signs Temperature 98.5 F 12/27/18 09:26 Pulse Rate 102 H 12/27/18 09:26 Respiratory Rate 20 12/27/18 09:26 Blood Pressure 100/58 L 12/27/18 09:26 O2 Sat by Pulse Oximetry (%) 12/27/18 11:29 lab pending Assessment: 12/27/18 11:29 alcohol withdrawal sx Plan: continue librium detox regimen
[2018-12-27 12:16] LABS: HEMATOCRIT 39.2 % (32.4-45.2); HEMOGLOBIN 12.4 GM/dL (10.7-15.3); MCH 23.6 pg (25.7-33.7); MCHC 31.6 g/dl (32.0-36.0); MEAN CELL VOLUME 74.7 fl (80-96); MEAN PLT VOLUME 9.3 fl (7.5-11.1); PLATELET COUNT 243 K/MM3 (134-434); RBC 5.25 M/mm3 (3.60-5.2); RDW 15.8 % (11.6-15.6); WHITE BLOOD COUNT 7.3 K/mm3 (4.0-10.0)
[2018-12-27 12:18] LABS: ALBUMIN 3.1 g/dl (3.4-5.0); BILIRUBIN,TOTAL 0.6 mg/dL (0.2-1); BLOOD UREA NITROGEN 13.3 mg/dL (7-18); CALCIUM 9.1 mg/dL (8.5-10.1); CREATININE 0.7 mg/dL (0.55-1.3); POTASSIUM 4.1 mmol/L (3.5-5.1); TOT PROT 6.5 g/dl (6.4-8.2)
[2018-12-27 14:24] LABS: PH,URINE 5.5 (5.0-8.0); URINE APPEARANCE CLEAR; URINE BILIRUBIN NEGATIVE (NEGATIVE); URINE COLOR YELLOW; URINE GLUCOSE (UA) NEGATIVE (NEGATIVE); URINE KETONE NEGATIVE (NEGATIVE); URINE LEUK ESTERASE NEGATIVE (NEGATIVE); URINE NITRITE NEGATIVE (NEGATIVE); URINE PROTEIN NEGATIVE (NEGATIVE); URINE UROBILINOGEN 0.2 mg/dL (0.2-1.0)
[2018-12-27] MEDS: THIAMINE HCL 100 MG TABLET (FP) PO SCH (22:05)
[2018-12-28] MEDS: chlordiazePOXIDE HCL 25 MG CAPSULE PO SCH ×4 (06:06→22:06)
--- NOTE | 2018-12-28 09:49 | PN ---
[facility] CIWA - CIWA Score Nausea/Vomitin-Mild Nausea/No Vomiting Muscle Tremors: 3 Anxiety: 3 Agitation: 1-Slight > Activity Paroxysmal Sweats: 2 Orientation: 0-Oriented Tacttile Disturbances: 1-Very Mild Itch/Numbness Auditory Disturbances: 0-None Visual Disturbances: 0-None Headache: 1-Very Mild CIWA-Ar Total Score: 12 S Progress Note (SOAP) Subjective: 58 years old female admitted on 12/26/18 for alcohol withdrawal sx management treated with librium detox regimen ate breakfast resting on bed comfortably discussed behavior therapy and psychosocial therapy Objective: 12/28/18 09:48 Vital Signs Temperature 96 F L 12/28/18 09:07 Pulse Rate 99 H 12/28/18 09:07 Respiratory Rate 20 12/28/18 09:07 Blood Pressure 119/58 L 12/28/18 09:07 O2 Sat by Pulse Oximetry (%) Laboratory Last Values WBC 7.3 K/mm3 (4.0-10.0) 12/27/18 08:00 RBC 5.25 M/mm3 (3.60-5.2) H 12/27/18 08:00 Hgb 12.4 GM/dL (10.7-15.3) 12/27/18 08:00 Hct 39.2 % (32.4-45.2) 12/27/18 08:00 MCV 74.7 fl (80-96) L 12/27/18 08:00 MCH 23.6 pg (25.7-33.7) L 12/27/18 08:00 MCHC 31.6 g/dl (32.0-36.0) L 12/27/18 08:00 RDW 15.8 % (11.6-15.6) H 12/27/18 08:00 Plt Count 243 K/MM3 (134-434) 12/27/18 08:00 MPV 9.3 fl (7.5-11.1) 12/27/18 08:00 Sodium 141 mmol/L (136-145) 12/27/18 08:00 Potassium 4.1 mmol/L (3.5-5.1) 12/27/18 08:00 Chloride 108 mmol/L (98-107) H 12/27/18 08:00 Carbon Dioxide 29 mmol/L (21-32) 12/27/18 08:00 Anion Gap 5 MMOL/L (8-16) L 12/27/18 08:00 BUN 13.3 mg/dL (7-18) 12/27/18 08:00 Creatinine 0.7 mg/dL (0.55-1.3) 12/27/18 08:00 Est GFR (CKD-EPI)AfAm 109.15 12/27/18 08:00 Est GFR (CKD-EPI)NonAf 94.17 12/27/18 08:00 Random Glucose 75 mg/dL (74-106) 12/27/18 08:00 Calcium 9.1 mg/dL (8.5-10.1) 12/27/18 08:00 Total Bilirubin 0.6 mg/dL (0.2-1) 12/27/18 08:00 AST 22 U/L (15-37) 12/27/18 08:00 ALT 29 U/L (13-61) 12/27/18 08:00 Alkaline Phosphatase 88 U/L (45-117) 12/27/18 08:00 Total Protein 6.5 g/dl (6.4-8.2) 12/27/18 08:00 Albumin 3.1 g/dl (3.4-5.0) L 12/27/18 08:00 Urine Color Yellow 12/27/18 12:50 Urine Appearance Clear 12/27/18 12:50 Urine pH 5.5 (5.0-8.0) 12/27/18 12:50 Ur Specific [place] 1.019 (1.010-1.035) 12/27/18 12:50 Urine Protein Negative (NEGATIVE) 12/27/18 12:50 Urine Glucose (UA) Negative (NEGATIVE) 12/27/18 12:50 Urine Ketones Negative (NEGATIVE) 12/27/18 12:50 Urine Blood Negative (NEGATIVE) 12/27/18 12:50 Urine Nitrite Negative (NEGATIVE) 12/27/18 12:50 Urine Bilirubin Negative (NEGATIVE) 12/27/18 12:50 Urine Urobilinogen 0.2 mg/dL (0.2-1.0) 12/27/18 12:50 Ur Leukocyte Esterase Negative (NEGATIVE) 12/27/18 12:50 RPR Titer Nonreactive (NONREACTIVE) 12/27/18 08:00 HIV 1&2 Antibody Screen Negative 12/27/18 08:00 HIV P24 Antigen Negative 12/27/18 08:00 lab noted Assessment: 12/28/18 09:48 alcohol withdrawal sx Plan: continue librium detox regimen
[2018-12-28] MEDS: PRENATAL VITAMINS W/ FOLIC ACID TABLET (FP) PO SCH (10:24)
[2018-12-28] MEDS: guaiFENesin 200 MG/10 ML 10 ML UNIT-DOSE CUPS PO PRN ×3 (10:25→22:07)
[2018-12-28] MEDS: THIAMINE HCL 100 MG TABLET (FP) PO SCH (22:06)
[2018-12-29] MEDS ORDERED: chlordiazePOXIDE HCL 10 MG CAPSULE PO PRN
[2018-12-29] MEDS: chlordiazePOXIDE HCL 10 MG CAPSULE PO SCH ×4 (05:27→22:31)
[2018-12-29] MEDS: guaiFENesin 200 MG/10 ML 10 ML UNIT-DOSE CUPS PO PRN ×4 (05:28→22:49)
[2018-12-29] MEDS: MENTHOL/PHENOL 1 EACH UD MM PRN (05:28)
[2018-12-29] MEDS: PRENATAL VITAMINS W/ FOLIC ACID TABLET (FP) PO SCH (10:46)
--- NOTE | 2018-12-29 12:15 | PN ---
S CIWA - CIWA Score Nausea/Vomitin-Mild Nausea/No Vomiting Muscle Tremors: 1-None Visible, but [place] Anxiety: 2 Agitation: 2 Paroxysmal Sweats: No Perspiration Orientation: 0-Oriented Tacttile Disturbances: 0-None Auditory Disturbances: 0-None Visual Disturbances: 0-None Headache: 1-Very Mild CIWA-Ar Total Score: 7 S Progress Note (SOAP) Subjective: alert,irritable,coughing,yellowish greenish mucous Objective: 12/29/18 12:13 Vital Signs Temperature 96.7 F L 12/29/18 09:16 Pulse Rate 105 H 12/29/18 09:16 Respiratory Rate 18 12/29/18 09:16 Blood Pressure 118/72 12/29/18 09:16 O2 Sat by Pulse Oximetry (%) Assessment: 12/29/18 12:14 withdrawal symptom lung clear no wheezing Plan: continue detox librium regimen,stated on zithromax for acute bronchitis, continue detox
[2018-12-29] MEDS ORDERED: AZITHROMYCIN 500 MG TABLET PO ONE (13:15)
[2018-12-29] MEDS: THIAMINE HCL 100 MG TABLET (FP) PO SCH (22:31)
[2018-12-30] MEDS ORDERED: chlordiazePOXIDE HCL 10 MG CAPSULE PO SCH (05:00)
[2018-12-30] MEDS: guaiFENesin 200 MG/10 ML 10 ML UNIT-DOSE CUPS PO PRN (05:36)
[2018-12-30] MEDS: MENTHOL/PHENOL 1 EACH UD MM PRN (05:36)
[2018-12-30] MEDS: PRENATAL VITAMINS W/ FOLIC ACID TABLET (FP) PO SCH (09:26)
[2018-12-30 09:35] VITALS: BP 102/71; PULSE 98; TEMP 97.9
--- NOTE | 2018-12-30 09:38 | DS ---
[facility] Detox Discharge Summary Admission Date: 12/26/18 Discharge Date: 12/30/18 - History Present History: Alcohol Dependence Additional Comments: 58 years old female admitted on 12/26/18 for alcohol withdrawal sx management treated with librium detox regimen patient is alert oriented x 3 cardiac S1S2 regular rate rhythm respiratory clear lung bilaterally on auscultation abdomen soft obese round no rebound tenderness Pertinent Past History: patient prefers to leave the detox unit one day earlier for cataract surgery right eye speech clearly coherently - Physical Exam Results Vital Signs: Vital Signs Temperature 97.9 F 12/30/18 09:25 Pulse Rate 98 H 12/30/18 09:25 Respiratory Rate 20 12/30/18 09:25 Blood Pressure 102/71 12/30/18 09:25 O2 Sat by Pulse Oximetry (%) Pertinent Admission Physical Exam Findings: alcohol withdrawal sx Laboratory Last Values WBC 7.3 K/mm3 (4.0-10.0) 12/27/18 08:00 RBC 5.25 M/mm3 (3.60-5.2) H 12/27/18 08:00 Hgb 12.4 GM/dL (10.7-15.3) 12/27/18 08:00 Hct 39.2 % (32.4-45.2) 12/27/18 08:00 MCV 74.7 fl (80-96) L 12/27/18 08:00 MCH 23.6 pg (25.7-33.7) L 12/27/18 08:00 MCHC 31.6 g/dl (32.0-36.0) L 12/27/18 08:00 RDW 15.8 % (11.6-15.6) H 12/27/18 08:00 Plt Count 243 K/MM3 (134-434) 12/27/18 08:00 MPV 9.3 fl (7.5-11.1) 12/27/18 08:00 Sodium 141 mmol/L (136-145) 12/27/18 08:00 Potassium 4.1 mmol/L (3.5-5.1) 12/27/18 08:00 Chloride 108 mmol/L (98-107) H 12/27/18 08:00 Carbon Dioxide 29 mmol/L (21-32) 12/27/18 08:00 Anion Gap 5 MMOL/L (8-16) L 12/27/18 08:00 BUN 13.3 mg/dL (7-18) 12/27/18 08:00 Creatinine 0.7 mg/dL (0.55-1.3) 12/27/18 08:00 Est GFR (CKD-EPI)AfAm 109.15 12/27/18 08:00 Est GFR (CKD-EPI)NonAf 94.17 12/27/18 08:00 Random Glucose 75 mg/dL (74-106) 12/27/18 08:00 Calcium 9.1 mg/dL (8.5-10.1) 12/27/18 08:00 Total Bilirubin 0.6 mg/dL (0.2-1) 12/27/18 08:00 AST 22 U/L (15-37) 12/27/18 08:00 ALT 29 U/L (13-61) 12/27/18 08:00 Alkaline Phosphatase 88 U/L (45-117) 12/27/18 08:00 Total Protein 6.5 g/dl (6.4-8.2) 12/27/18 08:00 Albumin 3.1 g/dl (3.4-5.0) L 12/27/18 08:00 Urine Color Yellow 12/27/18 12:50 Urine Appearance Clear 12/27/18 12:50 Urine pH 5.5 (5.0-8.0) 12/27/18 12:50 Ur Specific Recluse 1.019 (1.010-1.035) 12/27/18 12:50 Urine Protein Negative (NEGATIVE) 12/27/18 12:50 Urine Glucose (UA) Negative (NEGATIVE) 12/27/18 12:50 Urine Ketones Negative (NEGATIVE) 12/27/18 12:50 Urine Blood Negative (NEGATIVE) 12/27/18 12:50 Urine Nitrite Negative (NEGATIVE) 12/27/18 12:50 Urine Bilirubin Negative (NEGATIVE) 12/27/18 12:50 Urine Urobilinogen 0.2 mg/dL (0.2-1.0) 12/27/18 12:50 Ur Leukocyte Esterase Negative (NEGATIVE) 12/27/18 12:50 RPR Titer Nonreactive (NONREACTIVE) 12/27/18 08:00 HIV 1&2 Antibody Screen Negative 12/27/18 08:00 HIV P24 Antigen Negative 12/27/18 08:00 lab noted - Treatment Hospital Course: Detox Protocol Followed, Detoxed Safely, Responded well, Discharged Condition Good, Rehab Referral Accepted Patient has Accepted a Rehab Referral to: [facility] - Medication Discharge Medications: Ambulatory Orders Azithromycin [Zithromax 250mg Tablets -] 250 mg PO DAILY #7 tablet 12/30/18 Azithromycin [Zithromax] 500 mg PO ONCE #0 tablet 12/30/18 - Diagnosis (1) Alcohol dependence with uncomplicated withdrawal Current Visit: Yes Status: Acute (2) Nicotine dependence Current Visit: Yes Status: Acute Qualifiers: Nicotine product type: cigarettes Substance use status: in withdrawal Qualified Code(s): F17.213 - Nicotine dependence, cigarettes, with withdrawal (3) History of positive PPD Current Visit: Yes Status: Resolved (4) Cataract Current Visit: Yes Status: Chronic Qualifiers: Cataract type: unspecified Laterality: right Qualified Code(s): H26.9 - Unspecified cataract - AMA Did Patient Leave Against Medical Advice: No CIWA Score - CIWA Score Nausea/Vomitin-No Nausea/No Vomiting Muscle Tremors: 1-None Visible, but [place] Anxiety: 1-Mildly Anxious Agitation: 1-Slight > Activity Paroxysmal Sweats: No Perspiration Orientation: 0-Oriented Tacttile Disturbances: 0-None Auditory Disturbances: 0-None Visual Disturbances: 0-None Headache: 0-None Present CIWA-Ar Total Score: 3
[2018-12-30] MEDS ORDERED: AZITHROMYCIN 250 MG TABLET PO SCH (10:00)
[2018-12-31] MEDS ORDERED: chlordiazePOXIDE HCL 10 MG CAPSULE PO ONE (05:00)
== END 2018-12-30 11:59 | disposition home or self-care (01) | DRG 774 ==
LOC: YASAS 13:05 → Y3N 17:57
PROVIDERS: ADMIT Allergy & Immunology; ATTEND Allergy & Immunology
PROC: HZ2ZZZZ Detoxification Services for Substance Abuse Treatment (ICD-10-PCS; principal; 2018-12-26)
DX: F10.230 Alcohol dependence with withdrawal, uncomplicated (principal); F14.10 Cocaine abuse, uncomplicated; F12.10 Cannabis abuse, uncomplicated; F17.210 Nicotine dependence, cigarettes, uncomplicated; R76.11 Nonspecific reaction to tuberculin skin test without active tuberculosis; Z86.69 Personal history of other diseases of the nervous system and sense organs
CPT/HCPCS: 36415; 80053; 81003; 85027; 86593; 87389

== ENCOUNTER 2020-12-31 14:13 | Inpatient (IN) | payer OTHER ==
[2020-12-31] MEDS ORDERED: MAG HYDROX/AL HYDROX/SIMETH 30 ML UNIT-DOSE CUP PO PRN (16:05)
[2020-12-31] MEDS ORDERED: MENTHOL/PHENOL 1 EACH UD MM PRN (16:05)
[2020-12-31] MEDS ORDERED: IBUPROFEN 400 MG TABLET (FP) PO PRN (16:05)
[2020-12-31] MEDS ORDERED: ONDANSETRON *ODT* 4 MG TABLET SL PRN (16:05)
[2020-12-31] MEDS ORDERED: NICOTINE 10 MG CARTRIDGE (INHALER) IH PRN (16:05)
[2020-12-31] MEDS ORDERED: ACETAMINOPHEN 325 MG TABLET (FP) PO PRN ×2 (16:05)
[2020-12-31] MEDS ORDERED: MAGNESIUM CITRATE 300 ML BOTTLE PO PRN (16:05)
[2020-12-31] MEDS ORDERED: MAGNESIUM HYDROX 2400MG/30ML ORAL SUSPENSION 30 ML CUP PO PRN (16:05)
[2020-12-31] MEDS ORDERED: BISMUTH SUBSALICYLATE 524 MG/30 ML PO PRN (16:05)
[2020-12-31 17:36] VITALS: BMI 25.6
[2020-12-31] MEDS: hydrOXYzine PAMOATE 25 MG CAPSULE (FP) PO SCH ×2 (17:56→22:10)
[2020-12-31] MEDS: THIAMINE HCL 100 MG TABLET (FP) PO SCH (22:10)
[2020-12-31] MEDS: MELATONIN 5 MG TABLETS PO SCH (22:10)
[2021-01-01] MEDS: hydrOXYzine PAMOATE 25 MG CAPSULE (FP) PO SCH ×5 (05:49→22:09)
[2021-01-01] MEDS ORDERED: LORazepam 1 MG TABLET PO PRN (09:32)
[2021-01-01] MEDS ORDERED: diazePAM 5 MG TABLET PO PRN (10:18)
[2021-01-01] MEDS: diazePAM 5 MG TABLET PO SCH ×3 (10:43→22:07)
[2021-01-01] MEDS: PRENATAL VITAMINS W/ FOLIC ACID TABLET (FP) PO SCH (10:45)
[2021-01-01] MEDS ORDERED: LORazepam 1 MG TABLET PO SCH (11:00)
[2021-01-01 11:18] LABS: HEMATOCRIT 40.5 % (32.4-45.2); HEMOGLOBIN 12.9 GM/dL (10.7-15.3); MCH 23.8 pg (25.7-33.7); MCHC 31.8 g/dl (32.0-36.0); MEAN CELL VOLUME 74.9 fl (80-96); MEAN PLT VOLUME 9.2 fl (7.5-11.1); PLATELET COUNT 288 10^3/uL (134-434); RBC 5.41 M/mm3 (3.60-5.2); WHITE BLOOD COUNT 7.1 K/mm3 (4.0-10.0)
[2021-01-01 11:45] LABS: CALCIUM 8.8 mg/dL (8.5-10.1)
[2021-01-01 11:46] LABS: ALBUMIN 2.7 g/dl (3.4-5.0); BLOOD UREA NITROGEN 9.2 mg/dL (7-18)
[2021-01-01 11:49] LABS: CREATININE 0.7 mg/dL (0.55-1.3)
[2021-01-01 11:51] LABS: BILIRUBIN,TOTAL 0.4 mg/dL (0.2-1); TOT PROT 6.2 g/dl (6.4-8.2)
[2021-01-01] MEDS: amLODIPine BESYLATE 5 MG TABLET (FP) PO SCH (12:16)
[2021-01-01] MEDS: SIMETHICONE 80 MG TAB.CHEW (FP) PO SCH ×3 (14:52→22:07)
[2021-01-01 16:48] LABS: HIV INTERPRETATION NEGATIVE (NEGATIVE)
[2021-01-01] MEDS: THIAMINE HCL 100 MG TABLET (FP) PO SCH (22:07)
[2021-01-01] MEDS: MELATONIN 5 MG TABLETS PO SCH (22:09)
[2021-01-02] MEDS: diazePAM 5 MG TABLET PO SCH ×4 (05:41→22:12)
[2021-01-02] MEDS: hydrOXYzine PAMOATE 25 MG CAPSULE (FP) PO SCH ×5 (05:41→22:12)
[2021-01-02] MEDS: PRENATAL VITAMINS W/ FOLIC ACID TABLET (FP) PO SCH (10:46)
[2021-01-02] MEDS: METHOCARBAMOL 500 MG TABLET PO PRN (10:47)
[2021-01-02] MEDS: amLODIPine BESYLATE 5 MG TABLET (FP) PO SCH (10:47)
[2021-01-02] MEDS: THIAMINE HCL 100 MG TABLET (FP) PO SCH (22:12)
[2021-01-02] MEDS: MELATONIN 5 MG TABLETS PO SCH (22:12)
[2021-01-03] MEDS ORDERED: LORazepam 0.5 MG TABLET PO PRN
[2021-01-03] MEDS ORDERED: diazePAM 5 MG TABLET PO PRN (00:01)
[2021-01-03] MEDS ORDERED: LORazepam 0.5 MG TABLET PO SCH (05:00)
[2021-01-03] MEDS: diazePAM 5 MG TABLET PO SCH ×3 (05:56→22:21)
[2021-01-03] MEDS: hydrOXYzine PAMOATE 25 MG CAPSULE (FP) PO SCH ×2 (05:56→10:24)
[2021-01-03] MEDS ORDERED: diazePAM 5 MG TABLET PO SCH (06:00)
[2021-01-03] MEDS: METHOCARBAMOL 500 MG TABLET PO PRN (10:24)
[2021-01-03] MEDS: amLODIPine BESYLATE 5 MG TABLET (FP) PO SCH (10:24)
[2021-01-03] MEDS: PRENATAL VITAMINS W/ FOLIC ACID TABLET (FP) PO SCH (10:24)
[2021-01-03] MEDS ORDERED: hydrOXYzine PAMOATE 25 MG CAPSULE (FP) PO PRN (13:22)
[2021-01-03] MEDS: THIAMINE HCL 100 MG TABLET (FP) PO SCH (22:21)
[2021-01-03] MEDS: MELATONIN 5 MG TABLETS PO SCH (22:21)
[2021-01-04] MEDS ORDERED: LORazepam 0.5 MG TABLET PO PRN
[2021-01-04] MEDS ORDERED: LORazepam 0.5 MG TABLET PO SCH (05:00)
[2021-01-04] MEDS ORDERED: diazePAM 5 MG TABLET PO SCH ×2 (06:00)
[2021-01-04 09:48] VITALS: BP 121/75; PULSE 72; TEMP 97.6
[2021-01-04] MEDS: PRENATAL VITAMINS W/ FOLIC ACID TABLET (FP) PO SCH (10:12)
[2021-01-04] MEDS: amLODIPine BESYLATE 5 MG TABLET (FP) PO SCH (10:12)
[2021-01-05] MEDS ORDERED: LORazepam 0.5 MG TABLET PO ONE (05:00)
[2021-01-05] MEDS ORDERED: diazePAM 5 MG TABLET PO ONE ×2 (06:00)
== END 2021-01-04 11:12 | disposition home or self-care (01) | DRG 774 ==
LOC: YASAS 14:13 → Y6N 17:08
PROVIDERS: ADMIT Allergy & Immunology; ATTEND Allergy & Immunology
PROC: HZ2ZZZZ Detoxification Services for Substance Abuse Treatment (ICD-10-PCS; principal; 2020-12-31)
DX: F10.230 Alcohol dependence with withdrawal, uncomplicated (principal); F14.20 Cocaine dependence, uncomplicated; F12.20 Cannabis dependence, uncomplicated; F17.210 Nicotine dependence, cigarettes, uncomplicated; H54.62 Unqualified visual loss, left eye, normal vision right eye; H91.91 Unspecified hearing loss, right ear; Z86.11 Personal history of tuberculosis
CPT/HCPCS: 36415; 71046-TC-FY; 80053; 85027; 86593; 86780; 87389; C9803; U0003; U0005